=== PATIENT | female | born 1945 | race Caucasian/White ===

== ENCOUNTER 2019-09-02 11:03 | Outpatient (CLI) | payer MEDICARE, SELFPAY ==
--- NOTE | ~2019-09-02 | CT_ITS ---
EXAMINATION: CT shoulder RT wo con DATE: 09/02/2019 11:28 INDICATION: Right rotator cuff arthropathy. TECHNIQUE: High resolution computed tomography (CT) of the right shoulder was performed without intra venous contrast. Additional sagittal and coronal reconstructions were performed. Automated exposure c ontrol and iterative reconstruction technique were employed. The dose-length product was 493.22 mGy-c m. COMPARISON: Right shoulder radiographs dated 05/22/2019 and MRI dated 03/11/2019 FINDINGS: Bone alignment is normal. No fracture. The acromion undersurface is curved in morphology (type II). M ild acromioclavicular osteoarthritis. Right glenohumeral osteoarthritis with moderate to severe joint space narrowing and mild cystic changes along the posterior and superior glenoid. There is approxima tely 10 degrees retroversion of the glenoid. Dorsal osteophyte along the inferior humeral head. There are hypertrophic changes along with suture anchor tracks along the greater and lesser tuberosities c onsistent with prior rotator cuff repair. No significant rotator cuff muscle atrophy. Mild dependent bibasilar atelectasis in the visualized right lung. No pathologically enlarged lymphadenopathy at the right axillary visualized chest. Moderate thoracic and severe lower cervical spondylosis. Hemangioma at T3. IMPRESSION: 1. Moderate to severe glenohumeral osteoarthritis with 10 degree glenoid retroversion. 2. Postoperative change of prior rotator cuff repair with suture anchors at the lesser and greater tu berosities. No significant rotator cuff muscle atrophy. Reviewed, dictated and finalized at location A. IMPRESSION: 1. Moderate to severe glenohumeral osteoarthritis with 10 degree glenoid retrov ersion. 2. Postoperative change of prior rotator cuff repair with suture anchors at the lesser and greater tuberosities. No significant rotator cuff muscle atrophy.
== END 2019-09-02 11:04 | disposition home or self-care (01) ==
LOC: ANHIMG 11:05
PROVIDERS: PCP Internal Medicine; Visit Provider Orthopaedic Surgery
DX: M19.011 Primary osteoarthritis, right shoulder (principal)
CPT/HCPCS: 36415; 73200; 80048; 85025; 87081; 93005

== ENCOUNTER 2019-09-02 11:40 | Outpatient (CLI) | payer MEDICARE, SELFPAY ==
--- NOTE | 2019-09-02 12:24 | ECG_ITS ---
Measurements Intervals [place] Rate: 73 P: 60 TN: 184 QRS: 22 QRSD: 83 T: 35 QT: 363 QTc: 402 Interpretive Statements SINUS RHYTHM NORMAL ECG Electronically Signed On 09-02-2019 12:59:10 CDT by Kali Guaman D.O.
[2019-09-02 12:44] LABS: Basophils Absolute Auto 0.1 K/mm3 (0.0-0.1); Basophils Percent Auto 0.7 % (0.2-1.2); Eosinophils Absolute Auto 0.2 K/mm3 (0-0.3); Hematocrit 42.1 % (37.0-47.0); Hemoglobin 13.8 g/dL (12.0-15.0); Immature Granulocyte Absolute 0.01 K/mm3 (0.00-0.031); Immature Granulocyte Percent A 0.1 % (0-0.5); Lymphocytes Absolute Auto 3.19 K/mm3 (0.9-3.2); Lymphocytes Percent Auto 39.2 % (18.3-44.2); Mean Corpuscular HGB Conc 32.8 g/dl (32-36); Mean Corpuscular Hemoglobin 28.6 pg (26-34); Mean Corpuscular Volume 87.2 fl (80-100); Mean Platelet Volume 10.8 fl (7.4-10.4); Monocytes Absolute Auto 0.6 K/mm3 (0.1-0.6); Monocytes Percent Auto 7.9 % (2.6-8.5); Neutrophils Absolute Auto 4.1 K/mm3 (1.3-6.7); Neutrophils Percent Auto 50.1 % (45.5-73.1); Platelet Count Result 274 k/mm3 (150-375); Red Blood Count 4.83 M/mm3 (4.2-5.4); Red Cell Distribution Width 13.2 % (11.5-14.5); White Blood Count 8.1 K/mm3 (4.5-10.0)
[2019-09-02 12:57] LABS: Blood Urea Nitrogen 11 mg/dL (7-17); Calcium 9.3 mg/dL (8.4-10.2); Carbon Dioxide 30 mmol/L (22-30); Chloride 103 mmol/L (98-107); Estimated Glomerular Filt Rate > 60; Glucose 101 mg/dL (65-105); Potassium 4.2 mmol/L (3.4-5.0); Sodium 139 mmol/L (137-145)
== END 2019-09-02 11:41 | disposition home or self-care (01) ==
LOC: ANHSURGERY 11:42
PROVIDERS: Anesthesiology; PCP Internal Medicine; Visit Provider Orthopaedic Surgery
DX: M25.511 Pain in right shoulder (principal); E11.9 Type 2 diabetes mellitus without complications
CPT/HCPCS: 36415; 80048; 85025; 87081; 93005

== ENCOUNTER 2019-09-27 00:58 | Outpatient (CLI) | payer MEDICARE, SELFPAY ==
[2019-09-27 18:11] LABS: SARS-CoV-2 RNA PCR Negative
== END 2019-09-27 00:59 | disposition home or self-care (01) ==
LOC: ANHCOVIDDT 00:58
PROVIDERS: PCP Internal Medicine; Visit Provider Orthopaedic Surgery
DX: Z01.812 Encounter for preprocedural laboratory examination (principal); Z11.59 Encounter for screening for other viral diseases
CPT/HCPCS: 87635; C9803; U0003

== ENCOUNTER 2019-09-30 11:13 | Inpatient (IN) | payer MEDICARE, SELFPAY ==
[2019-09-02 12:04] VITALS: BP 142/76; PULSE 80; RESP 20; TEMP 37.2; O2SAT 96
[2019-09-02 12:24] VITALS: BMI 28.5
[2019-09-02 12:32] VITALS: BMI 28.5
--- NOTE | 2019-09-29 10:14 | WPDANESEPP ---
Anes - Eval Pre Procedure Procedure: Operation Date: 09/30/19 07:30 Proposed Procedures p Right Reverse Total Shoulder Arthroplasty - Jim Fink MD Date/Time: 09/29/19 10:14 Pre Op Diagnosis: Right Rotator Cuff Arthropathy Patient Data Age: 74 Gender: F Height: 1.55 m Weight: 68.4 kg Last Vital Signs Temp 37.2 C 09/02/19 12:04 Pulse 80 09/02/19 12:04 Resp 20 09/02/19 12:04 BP 142/76 H 09/02/19 12:04 Pulse Ox 96 09/02/19 12:04 Allergies Allergy/AdvReac Type Severity Reaction Status Date / Time iohexol Allergy Severe Anaphylaxis Verified 09/02/19 11:55 [From contrast - CT, X-RAY] shellfish derived Allergy Severe Anaphylaxis Verified 09/02/19 11:55 [id number] Reductase Allergy Severe Diarrhea Verified 09/02/19 11:55 Inhibitor iodine Allergy Mild Blister Verified 09/02/19 11:55 Home Medications Medication Instructions Recorded Confirmed Type sitagliptin 100 mg tablet 100 mg PO DAILY #90 tablet 01/20/19 09/02/19 Rx esomeprazole magnesium 40 mg 40 mg PO DAILY 02/28/19 09/02/19 History capsule,delayed release famotidine 40 mg tablet 40 mg PO DAILY tablet 02/28/19 09/02/19 History cetirizine 10 mg tablet 5 mg PO DAILY PRN 06/30/19 09/02/19 History ezetimibe 10 mg tablet 10 mg PO DAILY 06/30/19 09/02/19 History hydrocodone 5 mg-acetaminophen 325 1 tablet PO Q8H PRN #50 tablet 06/30/19 09/02/19 Rx mg tablet ondansetron 8 mg disintegrating 8 mg PO Q8H PRN #50 tablet 06/30/19 09/02/19 Rx tablet coenzyme Q10 30 mg capsule 30 mg PO DAILY 07/01/19 09/02/19 History alirocumab 150 mg/mL subcutaneous 150 mg SUBCUT Q14D #2 ml 08/13/19 09/02/19 Rx pen injector calcium carbonate-vitamin D3 1 tablet PO DAILY 09/02/19 09/02/19 History [Calcium 500 + D] Patient hx anesthesia problems: none Family hx anesthesia problems: none PMFSH Past Medical History Medical History (Updated 09/29/19 @ 10:16 by Shanthi Lemus CRNA) Arthritis of right shoulder region DM2 (diabetes mellitus, type 2) A1C=7 (02/26/19) GERD (gastroesophageal reflux disease) Hypercholesteremia Osteoporosis Right shoulder pain Rotator cuff arthropathy of right shoulder Surgical History Surgical History History of ankle surgery Right ORIF -2012 History of arthroscopy of right shoulder (~01/25/12) History of epicondylectomy Bilateral 2004 History of lumpectomy of both breasts 1985 History of partial hysterectomy History of tonsillectomy Hx of repair of rotator cuff Bilateral 2004 Social History Social History Smoking status: Never smoker Second hand tobacco smoke exposure: No Alcohol intake: never Additional living arrangements comments: Fam Paul (Spouse) Spiritual care concerns: No Exam Day of Procedure 09/29/19 10:14
[2019-09-30] VITALS (12 sets, daily range): BP systolic 122–180; BP diastolic 58–88; PULSE 73–100; RESP 14–18; TEMP 36.2–36.6; O2SAT 94–100
--- NOTE | ~2019-09-30 | XR_ITS ---
XR shoulder RT min 2V DATE: 09/30/2019 12:49 INDICATION: Postoperative examination TECHNIQUE: 2 views COMPARISON: None FINDINGS: There is postoperative change from reverse total glenohumeral joint replacement. No fracture or dislocation, periosteal reaction or bone destruction. IMPRESSION: Postoperative reverse total glenohumeral replacement Reviewed, dictated and finalized at location A.
[2019-09-30] MEDS: LACTATED RINGERS 1,000 ML 30 ML IV CONT ×2 (06:30→09:57)
[2019-09-30] MEDS: KETOROLAC 15 MG/ML VIAL (*BKC) IV PUSH (06:39)
[2019-09-30] MEDS: ACETAMINOPHEN 500 MG TABLET 1000 MG PO (06:39)
[2019-09-30] MEDS: TRANEXAMIC ACID 1,000MG/ISO100 1,000 MG/100 ML BAG 200 MG IVPB (06:39)
[2019-09-30 06:50] LABS: Glucose Point of Care 136 (65-105)
--- NOTE | 2019-09-30 07:00 | WPDANESEFPP ---
Anes - Eval Final PreProcedure Day of Procedure 09/30/19 07:00 Patient weight: overweight Heart: regular rate and rhythm Lungs: clear to auscultation Airway: Mallampati scale class II Neurological: alert and oriented Last oral intake: >/= 8 hours ASA classification: III Emergent: no Anesthetic plan: proceed Anesthesia type and monitoring: general ETT and standard monitoring Informed Consent: The patient's anesthetic plan and its attendant risks and benefits were discussed with the patient/family/POA. Questions were solicited and answers provided to the satisfaction of the patient/family/POA.
--- NOTE | 2019-09-30 07:18 | WPDHPUPDATE1 ---
History and Physical Update Update Date/Time: 09/30/19 07:18 History and Physical has been reviewed, including an updated exam of the patient. There are NO changes in the patient's condition. Risks, benefits, and alternatives have been discussed and questions answered. Patient agrees to proceed with procedure.
[2019-09-30] MEDS: ceFAZolin 2 GM/D5W 50 ML 2 GM/50 ML BAG IVPB (07:23)
--- NOTE | 2019-09-30 10:11 | P.OP_ITS ---
Procedure Note - Detailed Date of procedure: 09/30/19 Pre-op diagnosis: Right Rotator Cuff Arthropathy Post-op diagnosis: same Procedure performed: Reverse total shoulder arthroplasty. Biceps tenodesis. Implants: [employer]/ Bird, perform + reversed base plate. Perform reversed glenoid sphere, size 36 Flex shoulder system reverse tray low offset. 6 mm polyethylene reversed insert. Ascend flex standard humeral stem size 2B Anesthesia: GETA and regional Surgeon: Jim Fink MD Estimated blood loss (mL): 150 Drains: No Complications: None Condition: stable Disposition: PACU Findings: OPERATIVE DETAILS: The patient was given an interscalene block in the preoperative area. Preoperative antibiotics were given. The patient was transferred to the operating room and a general anesthetic was administered. The beach chair position was used at 45 degrees. All bony prominences were padded. The head was carefully stabilized on the [facility] head of digital advertising & integration. A sterile prep and drape was performed in the usual manner with ChloraPrep. A longitudinal incision was created at the anterior shoulder just lateral to the deltopectoral interval. Careful dissection was performed to expose the interval and protect the cephalic vein. The vein was retracted medially. The upper border of the pectoralis was released. Anterior circumflex vessel branches were suture ligated. The biceps was tenotomized and later tenodesed. A subscapularis tenotomy was performed. The inferior capsule was released, exposing the humeral head. Osteophytes were removed. Care was taken to stay on bone to protect the axillary nerve. The anatomic head cut was taken with the oscillating saw, 20 degree retroversion. Sounding and broaching was performed. The neck anteversion and inclination were carefully assessed. The cut protector was placed, and attention was turned to the glenoid. Retractors were placed. Releases were carried out for exposure. The subscapularis was mobilized, the inferior capsule and long head of triceps released, and the superior and middle glenohumeral ligaments released as well. Labral tissue was resected as needed. The sizing template was used to assess the baseplate position low on the glenoid. A guide pin was placed. Minimal reaming was used to accomplish a flat surface. Version was corrected according to preoperative templating, with more bone removed inferior and anterior. The boss, and central screw were drilled. The real component was screwed into position wtih the 35 mm screw. Supplemental locking screws were placed superiorly and inferiorly. The glenosphere was impacted into the taper, and secured with the locking screw. The humeral components were trialed. The real humeral stem and tray, and insert were impacted into position at 10:15 on the clock dial. The shoulder was copiously irrigated periodically with pulsatile lavage. The shoulder was reduced and stability confirmed. The biceps tenodesis was incorporated with the pectoralis tendon repair. The subsc apularis tendon was easily reduced, and thus repaired with #5 Ethibond. The deltopectoral space was reapproximated with number 2 Vicryl. The remaining tissue was closed with 0 Quill and 2-0 Quill running suture and steri-strips. A sterile dressing and shoulder immobilizer was placed. The patient was transferred to the recovery room. The subcutaneus tissues and skin were treated with peroxide and irrigated prior to closure.
[2019-09-30 10:44] LABS: Glucose Point of Care 216 (65-105)
--- NOTE | 2019-09-30 11:25 | ADMGEN ---
This patient, Brina Paul, was admitted to -. Patient/family oriented to hospital policies and general routines including ID bracelet, bed and alarms, visiting hours, pain management, procedures, bathroom and other care routines, personal items, smoking policy, room service/diet, and visiting hours. Valuables list has been completed. Information on how to activate the Rapid Response Team has been discussed. Patient/Family are encouraged to report perceived risks to care and to ask questions if they do not understand what they are told or what they should do.
[2019-09-30] MEDS: ONDANSETRON HCL ODT 4 MG TABLET 8 MG PO ×2 (12:12→22:17)
[2019-09-30] MEDS: SODIUM CHLORIDE 0.9% IV 1,000 ML 125 ML IV CONT (12:14)
[2019-09-30] MEDS: MEPERIDINE HCL INJ 50 MG/ML AMPUL IM (14:12)
--- NOTE | 2019-09-30 15:05 | PCPTNOTE ---
Attempted PT evaluation this date however pt was extremely groggy and unable to stay awake and requested that therapist come back tomorrow. Will attempt at a later date/time.
[2019-09-30] MEDS: FAMOTIDINE 20 MG TABLET 40 MG PO (18:08)
[2019-09-30] MEDS: DOCUSATE SODIUM 100 MG CAPSULE PO (22:06)
[2019-09-30] MEDS: ASPIRIN 325 MG ENTERIC TABLET PO (22:20)
[2019-09-30 23:03] LABS: Glucose Point of Care 160 (65-105)
[2019-10-01 00:58] VITALS: BP 141/64; PULSE 100; RESP 20; TEMP 36.6; O2SAT 92
[2019-10-01] MEDS: MEPERIDINE HCL INJ 50 MG/ML AMPUL IM (01:56)
[2019-10-01 04:58] VITALS: BP 135/60; PULSE 100; RESP 18; TEMP 36.6; O2SAT 96
[2019-10-01 07:49] LABS: Glucose Point of Care 183 (65-105)
[2019-10-01 08:13] LABS: Hematocrit 36.1 % (37.0-47.0); Hemoglobin 11.9 g/dL (12.0-15.0); Mean Corpuscular Hemoglobin 28.8 pg (26-34); Mean Corpuscular Volume 87.4 fl (80-100); Mean Platelet Volume 10.6 fl (7.4-10.4); Platelet Count Result 266 k/mm3 (150-375); Red Blood Count 4.13 M/mm3 (4.2-5.4); White Blood Count 14.4 K/mm3 (4.5-10.0)
--- NOTE | 2019-10-01 08:15 | WPDANESPN ---
Anes - Prog Note Post-Op Date/Time: 10/01/19 08:15 Cardiovascular status: normal Respiratory status: normal Airway patency: baseline Mental status: baseline Post-Op hydration status: normal Vital Signs: Last Vital Signs Temp 36.6 C 10/01/19 04:58 Pulse 100 10/01/19 04:58 Resp 18 10/01/19 04:58 BP 135/60 10/01/19 04:58 Pulse Ox 96 10/01/19 04:58 Pain Score (VAS): Patient resting in bed at time of assessment, appears comfortable at rest. Pt notes right shoulder pain during ambulation. Mild nausea with relief with PRN medications. No additional concerns at time of assessment. I/O: Intake & Output 09/30/19 10/01/19 10/01/19 23:59 07:59 15:59 Intake Total 1840 420 Output Total 200 Balance 1640 420 Laboratory Tests 10/01/19 07:57 09/30/19 09/30/19 10/01/19 10:41 22:31 07:46 WBC RBC Hgb Hct MCV MCH MCHC RDW Plt Count MPV Sodium Potassium Chloride Carbon Dioxide Anion Gap BUN Creatinine Estim Creat Clear Calc Estimated GFR Glucose POC Capillary Glucose 216 H 160 H 183 H Calcium 10/01/19 10/01/19 07:57 07:57 WBC 14.4 H RBC 4.13 L Hgb 11.9 L Hct 36.1 L MCV 87.4 MCH 28.8 MCHC 33.0 RDW 13.0 Plt Count 266 MPV 10.6 H Sodium Pending Potassium Pending Chloride Pending Carbon Dioxide Pending Anion Gap Pending BUN Pending Creatinine Pending Estim Creat Clear Calc Pending Estimated GFR Pending Glucose Pending POC Capillary Glucose Calcium Pending Post-procedural complaints: none Patient Feedback: Patient satisfied with anesthetic care.
[2019-10-01 08:19] LABS: Anion Gap 7 mmol/L (8-16); Blood Urea Nitrogen 19 mg/dL (7-17); Calcium 8.2 mg/dL (8.4-10.2); Carbon Dioxide 28 mmol/L (22-30); Chloride 97 mmol/L (98-107); Estimated CRCL calculation 73 ml/min; Estimated Glomerular Filt Rate > 60; Glucose 192 mg/dL (65-105); Sodium 132 mmol/L (137-145)
[2019-10-01] MEDS: FAMOTIDINE 20 MG TABLET 40 MG PO (08:55)
[2019-10-01] MEDS: ASPIRIN 325 MG ENTERIC TABLET PO ×2 (08:55→21:30)
[2019-10-01] MEDS: EZETIMIBE 10 MG TABLET PO (08:55)
[2019-10-01] MEDS: DOCUSATE SODIUM 100 MG CAPSULE PO ×2 (08:56→21:30)
[2019-10-01] MEDS: PANTOPRAZOLE 40 MG TABLET PO (08:56)
[2019-10-01 10:00] VITALS: BP 140/60; PULSE 96; RESP 18; TEMP 37.2; O2SAT 97
[2019-10-01 11:03] VITALS: O2SAT 93
[2019-10-01] MEDS: CALCIUM CARBONATE (TUMS) 500 MG (200 MG ELEMENTAL) PO (11:14)
[2019-10-01 11:59] LABS: Glucose Point of Care 175 (65-105)
--- NOTE | 2019-10-01 12:14 | PM.IMCN ---
Assessment and Plan Assessment and plan (1) Arthritis of right shoulder region: Code(s): M19.011 - Primary osteoarthritis, right shoulder Status: Acute Assessment and Plan: POD 1 elective reverse total shoulder arthroplasty and biceps tenodesis per Dr. Fink. Patient appears to be doing well postoperatively. Post op care, pain management, PT/OT, DVT ppx per primary service Patient is okay for discharge from medical standpoint F/u with PCP at scheduled appointment (2) Gastroesophageal reflux disease without esophagitis: Code(s): K21.9 - Gastro-esophageal reflux disease without esophagitis Status: Acute Assessment and Plan: Patient requested Tums this morning, which seemed to improve her symptoms. No further complaints. 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 We will continue to follow with you should she stay. Please call with any questions. Collaborating physician for this Hospitalist Consult H&P is Dr. Terese ANTONIO 10/01/2019 at roughly 12:00 pm HPI Data of Consult Consult date: 10/01/19 Requesting Physician: Jim Fink MD Primary Care Provider: Lopez Lawrence MD Consult Narrative Narrative: Brina Paul is a 74 year old female with history of right rotator cuff tear (s/p repair), right shoulder arthritis, DMII, Hypercholesteremia and GERD who presented to the hospital on 09/29 for elective reverse total shoulder arthroplasty and biceps tenodesis per Dr. Fink on 09/29; hospitalist service has been consulted for medical management of comorbid conditions. Patient states her pain has been ongoing for 18 years, having 2 arthroscopic repairs of her rotator cuff tears. She has had injections in the joint as well. Her pain has gradually worsened over the past several months. Diffuse, constant pain at rest, worsened with motion, affecting her ADLs. Patient elected to proceed with above surgery. Pain at its worse prior to surgery was 10/10; today it is 5/10 currently. Patient has intact motion of digits/hand of right arm and denies any numbness/tingling. She had some indigestion this morning but as improved with her home medications and Tums. No other complaints at the moment. Denies f/c/s, recent illness, myalgias/arthralgias, headaches, dizziness, lightheadedness, changes in v/h, cp/palpitations, sob/cough, current n/v/d/c, abd pain, changes in BMs, dysuria, hematuria, cloudy urine, calf pain/swelling. Review of Systems Review of Systems: All systems reviewed & are unremarkable except as noted in HPI and below PMFSH Past Medical History Medical History Arthritis of right shoulder region DM2 (diabetes mellitus, type 2) A1C=7 (02/26/19) GERD (gastroesophageal reflux disease) Hypercholesteremia Osteoporosis Right shoulder pain Rotator cuff arthropathy of right shoulder Surgical History Surgical History (Reviewed
--- NOTE | 2019-10-01 13:07 | PM.PNORT ---
Progress Note: A&P Assessment and Plan (1) Status post reverse total arthroplasty of right shoulder: Code(s): Z96.611 - Presence of right artificial shoulder joint Status: Acute Assessment and Plan: Uncomfortable. Pain controlled with IM medication. Neurologic status intact. Continue physical therapy. Plan for discharge tomorrow. Subjective Subjective Date/Time Seen: 10/01/19 13:07 Interval history: Pain is controlled with Demerol at this time. Satisfactory progress with physical therapy. Exam Narrative: Exam Narrative: Wound is healing without hematoma. Scant drainage at the central aspect of the wound. Laser Engineer strength intact. Light touch sensation intact. Axillary nerve fires. No significant ecchymosis or distal edema. Const: Orientation/consciousness: patient oriented x3 Neuro: General: patient oriented x3 Extrem: General: capillary refill normal and no calf tenderness bilaterally Objective Data Vital Signs Vital Signs: Vital Signs - 24 hr 09/30/19 13:10 09/30/19 16:10 09/30/19 22:00 Temperature 36.3 C L 36.3 C L 36.5 C Pulse Rate 81 88 100 Respiratory Rate 16 18 18 Blood Pressure 134/67 137/65 152/72 H Pulse Oximetry 94 99 95 10/01/19 00:58 10/01/19 04:58 10/01/19 10:00 Temperature 36.6 C 36.6 C 37.2 C Pulse Rate 100 100 96 Respiratory Rate 20 18 18 Blood Pressure 141/64 H 135/60 140/60 Pulse Oximetry 92 96 97 10/01/19 11:03 Temperature Pulse Rate Respiratory Rate Blood Pressure Pulse Oximetry 93 Intake/Output Intake/Output: Intake & Output 09/28/19 09/29/19 09/30/19 10/01/19 23:59 23:59 23:59 23:59 Intake Total 2340 660 Output Total 400 Balance 1940 660 Meds/Results Medications: Active Medications Generic Name Dose Route Start Last Admin Trade Name Freq PRN Reason Stop Dose Admin Aspirin 325 mg 09/30/19 21:00 10/01/19 08:55 Aspirin Ec PO 325 mg Q12HR JOHN Administration Calcium Carbonate 200 mg 10/01/19 11:06 10/01/19 11:14 Tums PO 200 mg Q6H PRN Administration Indigestion Dextrose 12.5 gm 09/30/19 20:08 Dextrose 50% Syringe IV PUSH PRN PRN Hypoglycemia Protocol Diazepam 5 mg 09/30/19 11:13 Valium Po PO Q8H PRN Muscle Spasm Docusate Sodium 100 mg 09/30/19 21:00 10/01/19 08:56 Colace Capsule PO 100 mg Q12HR JOHN Administration Ezetimibe 10 mg 10/01/19 09:00 10/01/19 08:55 Zetia PO 10 mg DAILY JOHN Administration Famotidine 40 mg 09/30/19 17:41 10/01/19 08:55 Pepcid PO 40 mg DAILY JOHN Administration Glucagon 1 mg 09/30/19 20:08 Glucagon For Inj IM PRN PRN Hypoglycemia Protocol Glucose 15 gm 09/30/19 20:08 Glutose 15 PO PRN PRN Hypoglycemia Protocol Dextrose 1,000 mls @ 100 mls/hr 09/30/19 20:08 Dextrose 5% 1,000 Ml IVPB PRN PRN Hypoglycemia Protocol Insulin Aspart 2 - 5 units 10/01/19 08:00 10/01/19 12:03 Novolog SUB-Q Not Given TIDWM [facility] Protocol Loratadine 5 mg 09/30/19 11:13 Claritin PO DAILY PRN Congestion Magnesium Hydroxide 30 ml 09/30/19 11:13 Milk Of Magnesia PO BID PRN Constipation Meperidine HCl 50 mg 09/30/19 13:35 10/01/19 01:56 Demerol IM 50 mg Q3H PRN Administration Breakthrough Pain Non-Formulary Medication 150 mg 09/30/19 11:13 Alirocumab [Praluent Pen] SUB-Q 10/30/19 11:14 Q14D [facility] Ondansetron HCl 8 mg 09/30/19 11:13 09/30/19 22:17 Zofran Odt PO 8 mg Q8H PRN Administration nausea and vomiting Oxycodone HCl 5 mg 09/30/19 11:13 09/30/19 22:19 Roxicodone Ir Tablet PO 5 mg Q4H PRN Administration Pain Rated 4-6 Oxycodone HCl 10 mg 09/30/19 11:13 09/30/19 12:16 Roxicodone Ir Tablet PO 10 mg Q4H PRN Administration Pain Rated 7-10 Pantoprazole Sodium 40 mg 10/01/19 09:00 10/01/19 08:56 Protonix PO 10/31/19 09:01 40
[2019-10-01 14:00] VITALS: BP 159/58; PULSE 106; RESP 17; TEMP 36.5; O2SAT 95
[2019-10-01 16:39] LABS: Glucose Point of Care 140 (65-105)
[2019-10-01] MEDS: ONDANSETRON HCL ODT 4 MG TABLET 8 MG PO (21:27)
[2019-10-01 22:00] VITALS: BP 150/55; PULSE 100; RESP 20; TEMP 36.9; O2SAT 96
[2019-10-01 23:19] LABS: Glucose Point of Care 141 (65-105)
[2019-10-02 04:50] VITALS: BP 128/56; PULSE 99; RESP 20; TEMP 36.4; O2SAT 92
[2019-10-02 06:02] LABS: Hematocrit 32.6 % (37.0-47.0); Hemoglobin 10.7 g/dL (12.0-15.0); Mean Corpuscular HGB Conc 32.8 g/dl (32-36); Mean Corpuscular Hemoglobin 28.7 pg (26-34); Mean Corpuscular Volume 87.4 fl (80-100); Mean Platelet Volume 10.5 fl (7.4-10.4); Platelet Count Result 221 k/mm3 (150-375); Red Blood Count 3.73 M/mm3 (4.2-5.4); White Blood Count 11.2 K/mm3 (4.5-10.0)
[2019-10-02 06:17] LABS: Anion Gap 4 mmol/L (8-16); Blood Urea Nitrogen 10 mg/dL (7-17); Calcium 8.2 mg/dL (8.4-10.2); Carbon Dioxide 30 mmol/L (22-30); Chloride 99 mmol/L (98-107); Estimated CRCL calculation 89 ml/min; Estimated Glomerular Filt Rate > 60; Glucose 157 mg/dL (65-105); Magnesium 1.9 mg/dL (1.6-2.3); Potassium 3.8 mmol/L (3.4-5.0); Sodium 133 mmol/L (137-145)
[2019-10-02 07:47] LABS: Glucose Point of Care 151 (65-105)
[2019-10-02] MEDS: DOCUSATE SODIUM 100 MG CAPSULE PO (07:52)
[2019-10-02] MEDS: FAMOTIDINE 20 MG TABLET 40 MG PO (07:52)
[2019-10-02] MEDS: EZETIMIBE 10 MG TABLET PO (07:53)
[2019-10-02] MEDS: ASPIRIN 325 MG ENTERIC TABLET PO (07:53)
[2019-10-02] MEDS: PANTOPRAZOLE 40 MG TABLET PO (07:53)
[2019-10-02 08:17] VITALS: O2SAT 92
[2019-10-02 11:27] LABS: Glucose Point of Care 132 (65-105)
--- NOTE | 2019-10-02 11:55 | PM.DS ---
DS: Admitting Diagnosis Admitting Diagnosis Admitting Diagnosis: Right Rotator Cuff Arthropathy DS: Discharge Diagnosis Discharge Diagnosis (1) Status post reverse total arthroplasty of right shoulder: Code(s): Z96.611 - Presence of right artificial shoulder joint Status: Acute DS: Summary Hospital Course Reason for hospitalization: Total shoulder arthroplasty. Hospital Course: Tolerated surgery well. Initial parenteral pain medication required. No interscalene block used. Progressed appropriately with therapy. Status at Discharge Functional status at discharge: independent ambulation Time Spent with Patient Time attestation: Total time spent providing and/or coordinating discharge services: Exam Const: General: no acute distress Resp: Effort & Inspection: normal respiratory effort Skin: Other: Wound healing well, scant drainage stopped. Mepilex dressing changed. No hematoma. Sling applied appropriately. Deltoid muscle fires. Axillary nerve sensation intact. Good jointer submarine cable strength. No edema. radial pulse palpable. Neuro: Motor exam (neuro): 5/5 motor strength present throughout Sensory Exam: normal sensation Psych: Mental Status: mental status grossly normal Speech and movement: Normal speech and movement present DS: Data Data Completed and Pending Labs on day of discharge: Labs from last 24 hours 10/02/19 10/02/19 10/02/19 11:25 07:41 05:43 WBC RBC Hgb Hct MCV MCH MCHC RDW Plt Count MPV Sodium 133 L Potassium 3.8 Chloride 99 Carbon Dioxide 30 Anion Gap 4 L BUN 10 D Creatinine 0.40 L Estim Creat Clear Calc 89 Estimated GFR > 60 Glucose 157 H POC Capillary Glucose 132 H 151 H Calcium 8.2 L Magnesium 1.9 10/02/19 10/01/19 10/01/19 05:43 21:35 16:23 WBC 11.2 H RBC 3.73 L Hgb 10.7 L Hct 32.6 L MCV 87.4 MCH 28.7 MCHC 32.8 RDW 13.0 Plt Count 221 MPV 10.5 H Sodium Potassium Chloride Carbon Dioxide Anion Gap BUN Creatinine Estim Creat Clear Calc Estimated GFR Glucose POC Capillary Glucose 141 H 140 H Calcium Magnesium 10/01/19 11:47 WBC RBC Hgb Hct MCV MCH MCHC RDW Plt Count MPV Sodium Potassium Chloride Carbon Dioxide Anion Gap BUN Creatinine Estim Creat Clear Calc Estimated GFR Glucose POC Capillary Glucose 175 H Calcium Magnesium Discharge Plan Discharge Attending physician on discharge: Jim Fink Consulting providers: Sebastian Ball Discharging Clinician: Jim Fink Patient Disposition: Home, Self-Care Activity: may shower Diet: regular Wound Care Instructions: follow printed instructions Discharge Instructions: See instruction sheet. Discharge instructions per Hospitalist Sebastian Ball PA-C: Follow up with Dr. Lawrence and Dr. Fink per their instructions Resume home medications as prescribed Continue to monitor your glucose levels at home Patient Instructions: Antibiotic Form, Rotator Cuff Injury (GEN), Joint Replacement Surgery (DC), Shoulder Arthroplasty (DC) Stand Alone Forms: General Discharge Information Follow-up/Referrals: Jim Fink MD [Physician] - Discharge Medications: New oxycodone-acetaminophen 5-325 mg tablet 1 - 2 tablet PO Q4-6H MDD 8 tablets PRN (Reason: pain) Qty: 40 RF: 0 Continued famotidine 40 mg tablet 40 mg PO DAILY RF: 0 esomeprazole magnesium 40 mg capsule,delayed release(DR/EC) 40 mg PO DAILY RF: 0 ezetimibe [Zetia] 10 mg tablet 10 mg PO DAILY RF: 0 cetirizine [Zyrtec] 10 mg tablet 5 mg PO DAILY PRN (Reason: Congestion) RF: 0 ondansetron 8 mg tablet,disintegrating 8 mg PO Q8H PRN (Reason: nausea and vomiting) Qty: 50 RF: 0 hydrocodone-acetaminophen 5-325 mg tablet 1 tablet PO Q8H PRN (Reason: pain) Qty: 5
--- NOTE | 2019-10-02 12:16 | PM.IMPN ---
Progress Note: A&P Assessment and Plan (1) Arthritis of right shoulder region: Code(s): M19.011 - Primary osteoarthritis, right shoulder Status: Acute Assessment and Plan: POD 2 elective reverse total shoulder arthroplasty and biceps tenodesis per Dr. Fink. Patient appears to be doing well postoperatively again today Post op care, pain management, PT/OT, DVT ppx per primary service Patient is okay for discharge from medical standpoint F/u with PCP and Ortho at scheduled appointment (2) Gastroesophageal reflux disease without esophagitis: Code(s): K21.9 - Gastro-esophageal reflux disease without esophagitis Status: Acute Assessment and Plan: No complaints today Continue home medications at discharge Continue with Tums PRN (3) Mixed hyperlipidemia: Code(s): E78.2 - Mixed hyperlipidemia Status: Acute Assessment and Plan: Continue with home Zetia Hold alirocumab; resume at discharge (injection every 2 weeks) (4) DM2 (diabetes mellitus, type 2): Qualifiers: Diabetes mellitus retirement insulin use: without retirement use Diabetes mellitus complication status: without complication Qualified Code(s): E11.9 - Type 2 diabetes mellitus without complications Code(s): E11.9 - Type 2 diabetes mellitus without complications Status: Acute Assessment and Plan: BGL reasonable during stay. 100s today Continue Januvia Accuchecks ACHS, hypoglycemia protocol, correctional insulin, diabetic diet during stay Additional Plan Thank you for allowing the Hospitalist team to care for this patient during their stay. We will continue to follow with you should she stay. Please call with any questions. Subjective Date/time seen: 10/02/19 12:16 This is a Hospitalist Consult Progress Note Interval history: Patient is a 74 year old female with history of right rotator cuff tear (s/p repair), right shoulder arthritis, DMII, Hypercholesteremia and GERD who is here for elective reverse total shoulder arthroplasty and biceps tenodesis per Dr. Fink POD2; hospitalist service has been consulted for medical management of comorbid conditions. Patient states she is doing well today. Pain is much better today. Tolerating PO, no BMs, but passing flatus. Therapy is going well, just tired from her session today. No other complaints. Denies f/c/s, cp/palpitations, sob/cough, n/v/d/c, abd pain,, dysuria, hematuria, cloudy urine, calf pain/swelling. Review of Systems Review of Systems: All systems reviewed & are unremarkable except as noted in HPI and below Exam Narrative: Exam Narrative: Patient lying in semi-adame's position at time of visit. in room visiting Const: General: cooperative, healthy appearing, comfortable, no acute distress, well developed and alert Nutritional Appearance: well nourished Orientation/consciousness: patient oriented x3 HENMT: Head: normocephalic and atraumatic General nose exam: Normal nares present Face and sinus: face symmetric Mouth: Yes moist mucous membranes Eyes: General: appearance normal, both eyes and all related structures EOM: EOMs intact bilaterally Neck: Neck: trachea midline and supple Resp: Effort & Inspection: normal respiratory effort Auscultation: clear to auscultation bilaterally Cardio: Rate: regular rate Rhythm: regular rhythm Heart sounds: Murmur heart sound present systolic GI: Inspection: non-distended GI Palp: No abdominal tenderness and Yes Soft to palpation Auscultation: normal bowel sounds Skin: General skin exam: normal color and no rashes or lesions noted Neuro: General: patient oriented x3, moves all extremities and no focal motor deficits Speech: normal speech Extrem: Right lower extremity: no edema Left lower extremity: no edema O
== END 2019-10-02 12:48 | disposition home or self-care (01) | DRG 483 ==
LOC: ANH2MED 12:01
PROVIDERS: Physician Assistant; Admitting Provider Orthopaedic Surgery; PCP Internal Medicine; Visit Provider Orthopaedic Surgery
PROC: 0RRJ00Z Replacement of Right Shoulder Joint with Reverse Ball and Socket Synthetic Substitute, Open Approach (ICD-10-PCS; CPT 23472; principal; 2019-09-30 07:30)
DX: M19.011 Primary osteoarthritis, right shoulder (principal); E11.9 Type 2 diabetes mellitus without complications; K21.9 Gastro-esophageal reflux disease without esophagitis; M81.0 Age-related osteoporosis without current pathological fracture; E78.2 Mixed hyperlipidemia; Z79.899 Other long term (current) drug therapy
CPT/HCPCS: 36415; 73030; 80048; 83735; 85027; 86850; 86900; 86901; 97110; 97116; 97161; 97165; 97535; A4565; A9270; C1776; J0171; J0690; J1100; J1170; J1885; J1940; J2175; J2250; J2270; J2405; J2704; J2795; J3010; J7030; J7120

== ENCOUNTER 2019-10-31 07:06 | Outpatient (NON) | payer MEDICARE, SELFPAY ==
[2019-11-01 18:02] LABS: SARS-CoV-2 RNA PCR Negative
== END 2019-10-31 07:07 ==
PROVIDERS: PCP Internal Medicine; Visit Provider Internal Medicine
DX: Z20.828 Contact with and (suspected) exposure to other viral communicable diseases (principal)
CPT/HCPCS: 87635; C9803; U0003

== ENCOUNTER → 2020-02-06 14:43 | Outpatient (CLI) | payer MEDICARE, SELFPAY ==
--- NOTE | ~2020-02-06 | MM_ITS ---
EXAMINATION: MM screening [facility] BI w karol HISTORY: Screening mammogram TECHNIQUE: Craniocaudal and mediolateral oblique 3-D tomosynthesis images were obtained and synthetic 2-D images were generated. CAD analysis was submitted and interpreted. COMPARISON: 10/23/2018, 03/18/2015, 07/22/2013 BREAST PARENCHYMAL COMPOSITION: There are scattered areas of fibroglandular density. FINDINGS: There is no evidence of suspicious mass, calcification, or architectural distortion to sugg est malignancy in either breast. There has been no suspicious interval change. IMPRESSION: 1. No mammographic evidence of malignancy. 2. Recommend routine screening mammography in one year. BI-RADS Category 1: Negative Reviewed, dictated and finalized at location A. EL BANDER
== END ==
PROVIDERS: PCP Internal Medicine; Visit Provider Internal Medicine
DX: Z12.31 Encounter for screening mammogram for malignant neoplasm of breast (principal)
CPT/HCPCS: 77063; 77067

== ENCOUNTER 2020-03-20 01:34 | Outpatient (CLI) | payer MEDICARE, SELFPAY ==
[2020-03-20 18:47] LABS: SARS-CoV-2 RNA PCR Negative
== END 2020-03-20 01:35 | disposition home or self-care (01) ==
LOC: ANHCOVIDDT 01:35
PROVIDERS: Family Provider Internal Medicine; PCP Internal Medicine; Visit Provider Internal Medicine Gastroenterology
DX: Z01.812 Encounter for preprocedural laboratory examination (principal); Z20.822 Contact with and (suspected) exposure to COVID-19
CPT/HCPCS: C9803; U0003; U0005

== ENCOUNTER 2020-03-23 02:07 | Day surgery (SDC) | payer MEDICARE, SELFPAY ==
[2020-03-18 15:44] VITALS: BMI 26.2
[2020-03-23 08:41] VITALS: BP 145/65; PULSE 77; RESP 18; TEMP 36.3; O2SAT 100; BMI 25.2
[2020-03-23 09:00] LABS: Glucose Point of Care 133 (65-105)
[2020-03-23] MEDS: LACTATED RINGERS 1,000 ML 150 ML IV CONT (09:04)
--- NOTE | 2020-03-23 09:28 | WPDGICN ---
Assessment and Plan Assessment and plan (1) Dysphagia: Qualifiers: Dysphagia type: oropharyngeal phase Qualified Code(s): R13.12 - Dysphagia, oropharyngeal phase Code(s): R13.10 - Dysphagia, unspecified Status: Acute Assessment and Plan: Because of patient's ongoing difficulty swallowing and possible history of esophageal stricture an EGD will be performed. Suspect this may be related to her acid reflux. Further recommendations will be given after endoscopy. (2) Hx of colonic polyps: Code(s): Z86.010 - Personal history of colonic polyps Status: Acute Assessment and Plan: Patient has a personal history of colon polyps. Surveillance colonoscopy recommended now on at least 5 year intervals in the future. (3) Gastric polyps: Code(s): K31.7 - Polyp of stomach and duodenum Status: Acute (4) Gastroesophageal reflux disease without esophagitis: Code(s): K21.9 - Gastro-esophageal reflux disease without esophagitis Status: Acute Assessment and Plan: Patient has ongoing heartburn despite Nexium 40 mg in the morning supplemented with Pepcid 40 mg at bedtime. Plan to evaluate with EGD. Dose of medications may need to be adjusted. GI Consult Note Consult date/time: 03/23/20 09:28 HPI: Brina Paul is a 74 year old female Seen in evaluation at the request of Dr. Lawrence. patient reports difficulty swallowing. She states food will hang up in her throat. She apparently had a modified barium swallow which she failed and has undergone speech therapy. Because of ongoing difficulty she presents today for EGD. She reports having prior EGD by Dr. Ny that showed a stricture that was dilated with a balloon. Patient complains of persistent heartburn. She takes Nexium 40 mg in the morning supplemented with Pepcid 40 mg at night but heartburn persists. Patient also has a distant history of colon polyps approximately 7 years ago. She presents today for surveillance colonoscopy. She states that her current weight appetite bowel movements are normal. Her last colonoscopy 5 years ago was unremarkable. [facility] Past Medical History Medical History (Updated 03/04/20 @ 08:[address] [facility]) Arthritis of right shoulder region BMI 27.0-27.9,adult DM2 (diabetes mellitus, type 2) A1C=7 (02/26/19) Dysphagia Encounter for Medicare annual wellness exam Gastric polyps GERD (gastroesophageal reflux disease) Hx of colonic polyps Hypercholesteremia Osteoporosis Right shoulder pain Rotator cuff arthropathy of right shoulder Surgical History Surgical History History of ankle surgery Right ORIF -2012 History of arthroscopy of right shoulder (~01/25/12) History of epicondylectomy Bilateral 2005 History of lumpectomy of both breasts 1985 History of partial hysterectomy History of tonsillectomy Hx of repair of rotator cuff Bilateral 2005 Status post reverse total arthroplasty of right shoulder Family History Family History Father Family history of osteoarthritis Sibling Family history of diabetes mellitus in first degree relative Diabetes mellitus Cancer Mother Acute myocardial infarction Hypertension Heart disease Social History Social History Social History: Patient lives at home with Fam, and son. She wishes Fam to be her surrogate MDM. She is listed as a FC. PCP is Dr. Lawrence whom she follows up with regularly Smoking status: Never smoker Second hand tobacco smoke exposure: No Alcohol intake: never Substance use: never Substance use type: does not use Living arrangements: with family Additional living arrangements comments: - Fam Spiritual care concerns: No Meds Home Medications and Allergies Home Medicatio
--- NOTE | 2020-03-23 09:57 | WPDANESEPPF ---
Anes - Initial Pre Proc Eval Procedure: Operation Date: 03/23/20 09:30 Proposed Procedures p Esophagogastroduodenoscopy & Screening Colonoscopy - Trey Lebron MD Date/Time: 03/23/20 09:57 Surgeon: Trey Lebron MD Pre Op Diagnosis: Dysphagia, Polyps stomach, duodenum,Pers Hx Angwin P Patient Data Age: 74 Gender: F Height: 5 ft 2 in Weight: 62.6 kg Last Vital Signs Temp 97.3 F L 03/23/20 08:41 Pulse 77 03/23/20 08:41 Resp 18 03/23/20 08:41 BP 145/65 H 03/23/20 08:41 Pulse Ox 100 03/23/20 08:41 Allergies Allergy/AdvReac Type Severity Reaction Status Date / Time iohexol Allergy Severe Anaphylaxis Verified 03/23/20 08:38 [From contrast - CT, X-RAY] shellfish derived Allergy Severe Anaphylaxis Verified 03/23/20 08:38 Ovtlvkz-Bkc-Ika Reductase Allergy Severe Diarrhea Verified 03/23/20 08:38 Inhibitor iodine Allergy Mild Blister Verified 03/23/20 08:38 acetaminophen [From Vicodin] AdvReac Dizziness Verified 03/23/20 08:40 hydrocodone [From Vicodin] AdvReac Dizziness Verified 03/23/20 08:40 Home Medications Medication Instructions Recorded Confirmed Type famotidine 40 mg tablet 40 mg PO DAILY tablet 02/28/19 03/18/20 History coenzyme Q10 30 mg capsule 30 mg PO DAILY 07/01/19 03/18/20 History calcium carbonate-vitamin D3 1 tablet PO DAILY 09/02/19 03/18/20 History [Calcium 500 + D] ezetimibe 10 mg tablet 10 mg PO DAILY #90 tablet 10/15/19 03/18/20 Rx esomeprazole magnesium 40 mg 40 mg PO DAILY #90 cap 12/16/19 03/18/20 Rx capsule,delayed release sitagliptin 100 mg tablet See Rx Instructions .ROUTE 03/08/20 03/18/20 Rx .COMPLEX #90 tablet alirocumab 75 mg/mL subcutaneous 75 mg SUBCUT Q14D #2 ml 03/11/20 03/18/20 Rx pen injector vitamin B complex [B 1 tablet PO DAILY 03/18/20 03/18/20 History Complex-Vitamin B12] Laboratory Tests 03/23/20 08:56 POC Capillary Glucose 133 mg/dl H mg/dl (65-105) Patient hx anesthesia problems: none Family hx anesthesia problems: none [facility] Past Medical History Medical History (Updated 03/04/20 @ 08:39 by Judy Hager [facility]) Arthritis of right shoulder region BMI 27.0-27.9,adult DM2 (diabetes mellitus, type 2) A1C=7 (02/26/19) Dysphagia Encounter for Medicare annual wellness exam Gastric polyps GERD (gastroesophageal reflux disease) Hx of colonic polyps Hypercholesteremia Osteoporosis Right shoulder pain Rotator cuff arthropathy of right shoulder Surgical History Surgical History History of ankle surgery Right ORIF -2012 History of arthroscopy of right shoulder (~01/25/12) History of epicondylectomy Bilateral 2004 History of lumpectomy of both breasts 1985 History of partial hysterectomy History of tonsillectomy Hx of repair of rotator cuff Bilateral 2004 Status post reverse total arthroplasty of right shoulder Family History Family History Father Family history of osteoarthritis Sibling Family history of diabetes mellitus in first degree relative Diabetes mellitus Cancer Mother Acute myocardial infarction Hypertension Heart disease Social History Social History Social History: Patient lives at home with Fam, and son. She wishes Fam to be her surrogate MDM. She is listed as a FC. PCP is Dr. Lawrence whom she follows up with regularly Smoking status: Never smoker Second hand tobacco smoke exposure: No Alcohol intake: never Substance use: never Substance use type: does not use Living arrangements: with family Additional living arrangements comments: - Fam Spiritual care concerns: No Anes - Eval Final PreProcedure Day of Procedure 03/23/20 09:57 Patient weight: overweight Heart: regular rate and rhythm Lungs: clear to auscultation Airway: Mallampati scale
[2020-03-23 10:51] VITALS: BP 131/64; PULSE 97; RESP 23; O2SAT 99
[2020-03-23 11:01] VITALS: BP 130/73; PULSE 87; RESP 16; O2SAT 98
[2020-03-23 11:10] VITALS: BP 124/63; PULSE 77; RESP 21; O2SAT 100
== END 2020-03-23 11:28 | disposition home or self-care (01) ==
PROVIDERS: Family Provider Internal Medicine; PCP Internal Medicine; Visit Provider Internal Medicine Gastroenterology
PROC: 0DJ08ZZ Inspection of Upper Intestinal Tract, Via Natural or Artificial Opening Endoscopic (ICD-10-PCS; CPT 43235; principal; 2020-03-23 09:30)
DX: Z12.11 Encounter for screening for malignant neoplasm of colon (principal); K64.8 Other hemorrhoids; Z86.010 Personal history of colon polyps; R13.10 Dysphagia, unspecified; K31.7 Polyp of stomach and duodenum; K21.9 Gastro-esophageal reflux disease without esophagitis; E11.9 Type 2 diabetes mellitus without complications; E78.00 Pure hypercholesterolemia, unspecified; M81.0 Age-related osteoporosis without current pathological fracture; Z79.84 Long term (current) use of oral hypoglycemic drugs
CPT/HCPCS: 43251; 43450; G0105; 82948; 88305; C9803; J2704; J7120; U0003; U0005

== ENCOUNTER 2020-05-15 16:00 | Emergency (ER) | payer MEDICARE, SELFPAY ==
--- NOTE | ~2020-05-15 | XR_ITS ---
EXAMINATION: XR foot LT min 3V EXAM DATE: 05/15/2020 16:39 INDICATION: Pain lat and medial Lt foot; twisted foot 5 days ago. Initial encounter. TECHNIQUE: Left foot dorsoplantar, lateral and oblique projections obtained and reviewed. Comparison is made to prior examination from 09/01/2015. FINDINGS: Left metatarsal bones unremarkable. There is mild hallux valgus and bunion. There is mil d 1st metatarsophalangeal joint primary osteoarthritis. There are no acute fractures or dislocations identified. There is no subcutaneous gas. The soft tissue is unremarkable. There are no radiopaqu e foreign bodies. IMPRESSION: 1. Left foot exam without acute osseous findings. 2. Chronic 1st metatarsophalangeal findings. Reviewed, dictated and finalized at location A.
[2020-05-15 16:15] VITALS: BP 153/64; PULSE 88; RESP 20; TEMP 37.4; O2SAT 97
--- NOTE | 2020-05-15 16:28 | ED.LOWEXIN ---
HPI - Extremity Injury (Lower) General Chief Complaint: Extremity Injury, Lower Stated Complaint: INJURED L FOOT Time Seen by Provider: 05/15/20 16:29 Source: patient Mode of arrival: ambulatory Limitations: no limitations History of Present Illness HPI Narrative: Brina Paul is a 74 yo female , with PMH of HTN, GERD, dysphagia, osteoporosis , diabetes, hypercholesterol, who had a sawhorse drop of her foot couple weeks ago. She was going on a stair and twisted her foot and now she is having pain in the foot is limping on Sunday. Here to evaluate whether she has a break in L foot as not improving. Related Data Home Medications Medication Instructions Recorded Confirmed calcium carbonate-vitamin D3 1 tablet PO DAILY 09/02/19 05/15/20 [Calcium 500 + D] vitamin B complex [B 1 tablet PO DAILY 03/18/20 05/15/20 Complex-Vitamin B12] Allergies Allergy/AdvReac Type Severity Reaction Status Date / Time iohexol Allergy Severe Anaphylaxis Verified 05/15/20 16:12 [From contrast - CT, X-RAY] shellfish derived Allergy Severe Anaphylaxis Verified 05/15/20 16:12 Ishxcie-Zee-Qtc Reductase Allergy Severe Diarrhea Verified 05/15/20 16:12 Inhibitor iodine Allergy Mild Blister Verified 05/15/20 16:12 acetaminophen [From Vicodin] AdvReac Dizziness Verified 05/15/20 16:12 hydrocodone [From Vicodin] AdvReac Dizziness Verified 05/15/20 16:12 Review of Systems Review of Systems: Narrative: CONSTITUTIONAL: Denies fever, chills, sweats. EYES: Denies visual changes, redness, discharge. ENT: Denies rhinorrhea, congestion, sore throat, otalgia. CARDIOVASCULAR: Denies chest pain, palpitations, edema. RESPIRATORY: Denies dyspnea, wheezing, cough GASTROINTESTINAL: Denies abdominal pain, nausea, vomiting, diarrhea. GENITOURINARY: Denies dysuria, hematuria, abnormal discharge SKIN: Denies rash or itching. NEUROLOGIC: Denies numbness, or focal weakness. PSYCHIATRIC: Denies anxiety or depression. Left foot pain, with limping PMFSH Past Medical History Medical History Arthritis of right shoulder region BMI 27.0-27.9,adult DM2 (diabetes mellitus, type 2) A1C=7 (1/8/20) Dysphagia Encounter for Medicare annual wellness exam Gastric polyps GERD (gastroesophageal reflux disease) Hx of colonic polyps Hypercholesteremia Osteoporosis Right shoulder pain Rotator cuff arthropathy of right shoulder Surgical History Surgical History History of ankle surgery Right ORIF -2012 History of arthroscopy of right shoulder (~01/25/12) History of epicondylectomy Bilateral 2004 History of lumpectomy of both breasts 1985 History of partial hysterectomy History of tonsillectomy Hx of repair of rotator cuff Bilateral 2005 Status post reverse total arthroplasty of right shoulder Family History Family History Father Family history of osteoarthritis Sibling Family history of diabetes mellitus in first degree relative Diabetes mellitus Cancer Mother Acute myocardial infarction Hypertension Heart disease Social History Social History Social History: Patient lives at home with Fam, and son. She wishes Fam to be her surrogate MDM. She is listed as a FC. PCP is Dr. Lawrence whom she follows up with regularly Smoking status: Never smoker Second hand tobacco smoke exposure: No Alcohol intake: never Substance use: never Substance use type: does not use Additional living arrangements comments: - Fam Spiritual care concerns: No Comments At time of signature, I agree with nursing past medical, surgical, social and family history. There is no relevant family history pertinent to the presenting complaint. Patient's blood pressure is elevated she states that she thinks is d
== END 2020-05-15 17:17 | disposition home or self-care (01) ==
PROVIDERS: Emergency Provider Nurse Practitioner; PCP Internal Medicine
DX: M79.672 Pain in left foot (principal); M19.90 Unspecified osteoarthritis, unspecified site; E11.9 Type 2 diabetes mellitus without complications; K21.9 Gastro-esophageal reflux disease without esophagitis; E78.00 Pure hypercholesterolemia, unspecified; M81.0 Age-related osteoporosis without current pathological fracture
CPT/HCPCS: 73630; 99213; G0463

== ENCOUNTER 2020-10-11 04:34 | Observation (INO) | payer MEDICARE, SELFPAY ==
[2020-10-11] VITALS (24 sets, daily range): BP systolic 115–184; BP diastolic 47–78; PULSE 65–79; RESP 12–19; TEMP 36.7–36.9; O2SAT 92–100
--- NOTE | ~2020-10-11 | CT_ITS ---
EXAMINATION: CT abdomen pelvis wo con EXAM DATE: 10/11/2020 05:06 INDICATION: Right upper quadrant pain. TECHNIQUE: Spiral CT of the abdomen and pelvis was performed without contrast. Axial, coronal and s agittal images of the abdomen and pelvis were reviewed. The dose-length product (DLP) for this exami nation was 463.02 mGy-cm. The exposure was tailored according to patient size (auto mA exposure cont rol), and iterative reconstruction (ASIR) was used as additional dose reduction technique. There is no prior study for comparison. FINDINGS: The liver, spleen, adrenal glands and pancreas are unremarkable. Gallbladder is unremarkab le. Please note that noncalcified cholelithiasis was confirmed on a subsequent ultrasound. No biliary obstruction. There is 4 mm right inferior calyceal stone which is nonobstructing. The uterus is unr emarkable. Some diffuse bladder wall thickening, could indicate chronic cystitis. Acute cystitis no t excludable. There is no retroperitoneal or pelvic lymphadenopathy. There are no findings to suggest appendicitis. The stomach and small bowel are unremarkable. There is expected amount of colonic stool. No free intraperitoneal gas. The heart is normal in size. T here are no pericardial or pleural effusions. The lung bases are unremarkable. The bones are unrema rkable. IMPRESSION: 1. Nonobstructing small right kidney stone. 2. Mild diffuse bladder wall thickening. Reviewed, dictated and finalized at location A.
--- NOTE | ~2020-10-11 | US_ITS ---
EXAMINATION: US right upper quadrant EXAM DATE: 10/11/2020 07:39 INDICATION: Right upper quadrant pain. TECHNIQUE: Multiple grayscale and Doppler images of the abdomen right upper quadrant were obtained (b y a technologist who performed the scan) and subsequently reviewed. Correlation is made to CT abdomen pelvis obtained earlier same date. FINDINGS: The pancreatic head and body are normal in appearance. The pancreatic tail is not visualized. The l iver has normal echogenicity and contour. There are no focal liver lesions identified. There is no evidence of intrahepatic biliary duct dilation. Portal venous flow was seen in the hepatopedal, nor mal direction and has normal Doppler waveform. No right-sided hydronephrosis. Common bile duct measures 4 mm, which is normal. The gallbladder wall is 3 to 4 mm in thickness, with mild amount of distention. No sonographic evidence of pericholecystic fluid. Several gallstones id entified. Technologist performing exam reports patient did not demonstrate sonographic Vale's sign . Please note that this sign is less reliable in patients who have received pain medication. IMPRESSION: Cholelithiasis. Mildly thickened gallbladder wall. Findings nonspecific given absence of sonographic Vale's sign but cholecystitis not excludable. Consider HIDA scan. Reviewed, dictated and finalized at location A. IMPRESSION: Cholelithiasis. Mildly thickened gallbladder wall. Findings nonspec ific given absence of sonographic Vale's sign but cholecystitis not excludabl e. Consider HIDA scan.
[2020-10-11] MEDS: SODIUM CHLORIDE 0.9% IV 1,000 ML 999 ML IV CONT (04:57)
[2020-10-11] MEDS: ONDANSETRON INJ 4 MG/2 ML VIAL IV PUSH (04:57)
[2020-10-11] MEDS: MORPHINE SULFATE (*CRX) 4 MG/ML INJ IV PUSH ×3 (04:58→10:49)
[2020-10-11 05:02] LABS: Basophils Absolute Auto 0.1 K/mm3 (0.0-0.1); Basophils Percent Auto 0.5 % (0.2-1.2); Eosinophils Absolute Auto 0.2 K/mm3 (0-0.3); Eosinophils Percent Auto 1.8 % (0-4.4); Hematocrit 38.3 % (37.0-47.0); Immature Granulocyte Absolute 0.05 K/mm3 (0.00-0.031); Immature Granulocyte Percent A 0.4 % (0-0.5); Lymphocytes Absolute Auto 2.97 K/mm3 (0.9-3.2); Lymphocytes Percent Auto 22.8 % (18.3-44.2); Mean Corpuscular HGB Conc 31.3 g/dl (32-36); Mean Corpuscular Hemoglobin 26.7 pg (26-34); Mean Corpuscular Volume 85.1 fl (80-100); Mean Platelet Volume 10.9 fl (7.4-10.4); Monocytes Absolute Auto 0.8 K/mm3 (0.1-0.6); Monocytes Percent Auto 5.8 % (2.6-8.5); Neutrophils Percent Auto 68.7 % (45.5-73.1); Platelet Count Result 281 k/mm3 (150-375); Red Cell Distribution Width 13.7 % (11.5-14.5)
--- NOTE | 2020-10-11 05:09 | ECG_ITS ---
Measurements Intervals [facility] Rate: 65 P: 65 SC: 185 QRS: 24 QRSD: 91 T: 46 QT: 382 QTc: 399 Interpretive Statements SINUS RHYTHM BASELINE ARTIFACT- II, III, AVR, AVF, V3-V6 NORMAL ECG Electronically Signed On 10-11-2020 7:00:30 CDT by Kali Guaman D.O.
[2020-10-11 05:18] LABS: Alanine Aminotransferase 30 U/L (4-35); Albumin Level 4.1 g/dL (3.5-5.1); Alkaline Phosphatase 79 U/L (38-126); Anion Gap 11 mmol/L (8-16); Aspartate Amino Transferase 30 U/L (14-36); Bilirubin,Total 0.4 mg/dL (0.2-1.3); Blood Urea Nitrogen 15 mg/dL (7-17); Carbon Dioxide 23 mmol/L (22-30); Chloride 103 mmol/L (98-107); Estimated CRCL calculation 78 ml/min; Estimated Glomerular Filt Rate > 60; Glucose 185 mg/dL (65-110); Lipase 139 U/L (23-300); Potassium 3.9 mmol/L (3.4-5.0); Sodium 137 mmol/L (137-145)
--- NOTE | 2020-10-11 05:19 | ED.GENADULT ---
HPI - General Adult General Chief complaint: Chest Pain <Balaji Merida MD - Last Filed: 10/11/20 06:06> Stated complaint: cp since 2pm <Balaji Merida MD - Last Filed: 10/11/20 06:06> Time Seen by Provider: 10/11/20 04:37 <Balaji Merida MD - Last Filed: 10/11/20 06:06> History of Present Illness HPI narrative: Patient is a 75-year-old female who presents ER with epigastric and right upper quadrant tenderness. Sharp and sudden onset. Occurred at 2 AM. Persistent since then. Radiates to back. Associate with nausea but no vomiting. Has had similar symptoms 3 times this week all occurring while sleeping. No issues with eating. Denies urinary frequency/urgency/dysuria. No chest pain or chest pressure to breathing. <Balaji Merida MD - Last Filed: 10/11/20 06:06> Related Data Home medications: Home Medications Medication Instructions Recorded Confirmed vitamin B complex [B 1 tablet PO DAILY 03/18/20 07/12/20 Complex-Vitamin B12] calcium carbonate 500 mg calcium 500 mg PO DAILY 07/12/20 07/12/20 (1,250 mg) chewable tablet multivitamin 1 tablet PO DAILY 07/12/20 07/12/20 <Balaji Merida MD - Last Filed: 10/11/20 06:06> Allergies/adverse reactions: Allergies Allergy/AdvReac Type Severity Reaction Status Date / Time iohexol Allergy Severe Anaphylaxis Verified 09/29/20 09:03 [From contrast - CT, X-RAY] shellfish derived Allergy Severe Anaphylaxis Verified 09/29/20 09:03 Nsuqtnp-Evi-Jum Reductase Allergy Severe Diarrhea Verified 09/29/20 09:03 Inhibitor iodine Allergy Mild Blister Verified 09/29/20 09:03 acetaminophen [From Vicodin] AdvReac Dizziness Verified 09/29/20 09:03 hydrocodone [From Vicodin] AdvReac Dizziness Verified 09/29/20 09:03 <Balaji Merida MD - Last Filed: 10/11/20 06:06> Review of Systems Review of Systems: All systems reviewed & are unremarkable except as noted in HPI and below <Balaji Merida MD - Last Filed: 10/11/20 06:06> Constitutional: Constitutional: Denies chills, Denies fever(s) and Denies weakness <Balaji Merida MD - Last Filed: 10/11/20 06:06> ENT: Denies nasal congestion and Denies sore throat <Balaji Merida MD - Last Filed: 10/11/20 06:06> Cardiovascular: Cardiovascular: Denies chest pain and Denies radiating jaw, neck or arm pain <Balaji Merida MD - Last Filed: 10/11/20 06:06> Respiratory: Respiratory: Denies cough and Denies dyspnea <Balaji Merida MD - Last Filed: 10/11/20 06:06> Gastrointestinal: Gastrointestinal: Reports abdominal pain, Denies diarrhea, Reports nausea and Denies vomiting <Balaji Merida MD - Last Filed: 10/11/20 06:06> Genitourinary: Genitourinary: Denies nocturia, Denies flank pain and Denies urinary incontinence <Balaji Merida MD - Last Filed: 10/11/20 06:06> [facility] Past Medical History Medical History: Medical History (Updated 10/11/20 @ 10:24 by Ian Nathan MD) Arthritis of right shoulder region BMI 26.0-26.9,adult BMI 27.0-27.9,adult DJD (degenerative joint disease), multiple sites DM2 (diabetes mellitus, type 2) A1C=7 (02/26/19) Dysphagia Encounter for Medicare annual wellness exam Gastric polyps GERD (gastroesophageal reflux disease) Hx of colonic polyps Hypercholesteremia Osteoporosis Right shoulder pain Rotator cuff arthropathy of right shoulder <Balaji Merida MD - Last Filed: 10/11/20 06:06> Surgical History Surgical History: Surgical History History of ankle surgery Right ORIF -2012 History of arthroscopy of right shoulder (~01/25/12) History of epicondylectomy Bilateral 2004 History of lumpectomy of both breasts 1985 History of partial hysterectomy History of tonsillectomy Hx of repair of rotator cuff Bilateral 2004 Status post reverse total arthroplasty of right shoulder (~09/30/19) <Balaji Merida MD - Last Filed: 10/11/20 06:06>
[2020-10-11 05:29] LABS: Troponin I < 0.012 ng/mL (0.000-0.034)
[2020-10-11 06:30] LABS: Add Urine Microscopic? NO; Appearance Urine Clear (Clear); Bilirubin Urine Negative (Negative); Blood Urine Negative (Negative); Color Urine Straw (Yellow); Glucose Urine UA Negative (Negative); Ketones Urine Negative (Negative); Leukocyte Esterase Ur Negative LEU/UL (Negative); Nitrate Urine Negative (Negative); Protein Urine Negative (Negative); Specific Grav Ur 1.011 (1.001-1.035); Urobilinogen Urine Negative mg/dL (<2.0)
[2020-10-11] MEDS: ERTAPENEM 1 GM/NS 50 ML 1 GM/50 ML BAG IVPB (10:48)
--- NOTE | 2020-10-11 13:10 | PM.IMHP ---
H&P: HPI History of Present Illness Date/Time: 10/11/20 13:10 Chief Complaint: Epigastric pain Narrative: This is a 75-year-old woman who presented to the emergency department with epigastric pain that has been constant since last night. She states that 3 days ago she had epigastric pain that lasted about 2 hours. She had another episode like that 2 days ago as well. She had eaten a fried fish sandwich for dinner last night. She denies any nausea or vomiting. She has not had episodes like this before. She denies any change in bowel habits. She does have a history of GERD but states that this pain and the symptoms have been different. Review of Systems Review of Systems: All systems reviewed & are unremarkable except as noted in HPI and below Constitutional: Constitutional: Denies chills and Denies fever(s) Eyes: Eyes: Denies change in vision ENT: Denies hearing loss, Denies neck pain and Denies sore throat Cardiovascular: Cardiovascular: Denies chest pain and Denies dyspnea Respiratory: Respiratory: Denies cough, Denies dyspnea and Denies wheezing Gastrointestinal: Gastrointestinal: Reports as per HPI Genitourinary: Genitourinary: Denies hematuria and Denies dysuria Musculoskeletal: Musculoskeletal: Denies arthralgias, Denies joint swelling and Denies neck pain Allergic/Immunologic: Allergic/Immunologic: Denies wheezing PMF Past Medical History Medical History Arthritis of right shoulder region BMI 26.0-26.9,adult BMI 27.0-27.9,adult DJD (degenerative joint disease), multiple sites DM2 (diabetes mellitus, type 2) A1C=7 (02/26/19) Dysphagia Encounter for Medicare annual wellness exam Gastric polyps GERD (gastroesophageal reflux disease) Hx of colonic polyps Hypercholesteremia Osteoporosis Right shoulder pain Rotator cuff arthropathy of right shoulder Surgical History Surgical History History of ankle surgery Right ORIF -2012 History of arthroscopy of right shoulder (~01/25/12) History of epicondylectomy Bilateral 2004 History of lumpectomy of both breasts 1985 History of partial hysterectomy History of tonsillectomy Hx of repair of rotator cuff Bilateral 2004 Status post reverse total arthroplasty of right shoulder (~09/30/19) Family History Family History Father Family history of osteoarthritis Sibling Family history of diabetes mellitus in first degree relative Diabetes mellitus Cancer Mother Acute myocardial infarction Hypertension Heart disease Social History Social History Social History: Patient lives at home with Fam, and son. She wishes Fam to be her surrogate MDM. She is listed as a FC. PCP is Dr. Lawrence whom she follows up with regularly Smoking status: Never smoker Second hand tobacco smoke exposure: No Alcohol intake: never Substance use: never Substance use type: does not use Additional living arrangements comments: - Fam Spiritual care concerns: No Meds Home Medications and Allergies Home Medications Medication Instructions Recorded Confirmed Type vitamin B complex [B 1 tablet PO DAILY 03/18/20 07/12/20 History Complex-Vitamin B12] calcium carbonate 500 mg calcium 500 mg PO DAILY 07/12/20 07/12/20 History (1,250 mg) chewable tablet multivitamin 1 tablet PO DAILY 07/12/20 07/12/20 History esomeprazole magnesium 40 mg 40 mg PO BID #180 cap 07/22/20 Rx capsule,delayed release ezetimibe 10 mg tablet 10 mg PO DAILY #90 tablet 07/22/20 Rx sitagliptin 100 mg tablet See Rx Instructions .ROUTE 07/22/20 Rx .COMPLEX #90 tablet alirocumab 75 mg/mL subcutaneous 75 mg SUBCUT Q14D #2 ml 09/02/20 Rx pen injector Allergies Allergy/AdvReac Type Severity Reaction Status Date
--- NOTE | 2020-10-11 13:20 | WPDANESEPPF ---
Anes - Initial Pre Proc Eval Procedure: Operation Date: 10/11/20 15:00 Proposed Procedures p Laparoscopic Cholecystectomy,Possible Open - Iglesia Lemos DO Date/Time: 10/11/20 13:20 Surgeon: Iglesia Lemos DO Pre Op Diagnosis: Acute cholecystitis Patient Data Age: 75 Gender: F Height: 1.57 m Weight: 56 kg Last Vital Signs Temp 36.9 C 10/11/20 04:38 Pulse 67 10/11/20 11:45 Resp 12 10/11/20 11:45 BP 115/61 10/11/20 11:45 Pulse Ox 94 10/11/20 11:45 Allergies Allergy/AdvReac Type Severity Reaction Status Date / Time iohexol Allergy Severe Anaphylaxis Verified 10/11/20 14:04 [From contrast - CT, X-RAY] shellfish derived Allergy Severe Anaphylaxis Verified 10/11/20 14:04 Qwoayqy-Goe-Zba Reductase Allergy Severe Diarrhea Verified 10/11/20 14:04 Inhibitor iodine Allergy Mild Blister Verified 10/11/20 14:04 acetaminophen [From Vicodin] AdvReac Dizziness Verified 10/11/20 14:04 hydrocodone [From Vicodin] AdvReac Dizziness Verified 10/11/20 14:04 Home Medications Medication Instructions Recorded Confirmed Type vitamin B complex [B 1 tablet PO DAILY 03/18/20 07/12/20 History Complex-Vitamin B12] calcium carbonate 500 mg calcium 500 mg PO DAILY 07/12/20 07/12/20 History (1,250 mg) chewable tablet multivitamin 1 tablet PO DAILY 07/12/20 07/12/20 History esomeprazole magnesium 40 mg 40 mg PO BID #180 cap 07/22/20 Rx capsule,delayed release ezetimibe 10 mg tablet 10 mg PO DAILY #90 tablet 07/22/20 Rx sitagliptin 100 mg tablet See Rx Instructions .ROUTE 07/22/20 Rx .COMPLEX #90 tablet alirocumab 75 mg/mL subcutaneous 75 mg SUBCUT Q14D #2 ml 09/02/20 Rx pen injector Laboratory Tests 10/11/20 10/11/20 10/11/20 04:54 04:54 06:20 WBC 13.0 K/mm3 H K/mm3 (4.5-10.0) RBC 4.50 M/mm3 M/mm3 (4.2-5.4) Hgb 12.0 g/dL g/dL (12.0-15.0) Hct 38.3 % % (37.0-47.0) MCV 85.1 fl fl (80-100) MCH 26.7 pg pg (26-34) MCHC 31.3 g/dl L g/dl (32-36) RDW 13.7 % % (11.5-14.5) Plt Count 281 k/mm3 k/mm3 (150-375) MPV 10.9 fl H fl (7.4-10.4) Immature Gran % (Auto) 0.4 % % (0-0.5) Neut % (Auto) 68.7 % % (45.5-73.1) Lymph % (Auto) 22.8 % % (18.3-44.2) Castro % (Auto) 5.8 % % (2.6-8.5) Eos % (Auto) 1.8 % % (0-4.4) Baso % (Auto) 0.5 % % (0.2-1.2) Lymph # (Auto) 2.97 K/mm3 K/mm3 (0.9-3.2) Castro # (Auto) 0.8 K/mm3 H K/mm3 (0.1-0.6) Eos # (Auto) 0.2 K/mm3 K/mm3 (0-0.3) Baso # (Auto) 0.1 K/mm3 K/mm3 (0.0-0.1) Abs Immat Gran (auto) 0.05 K/mm3 H K/mm3 (0.00-0.031) Absolute Neuts (auto) 9.0 K/mm3 H K/mm3 (1.3-6.7) Absolute Nucleated RBC 0.0 K/mm3 K/mm3 (0.0-0.012) Nucleated RBC % 0.0 % % (0.0-0.2) Sodium 137 mmol/L mmol/L (137-145) Potassium 3.9 mmol/L mmol/L (3.4-5.0) Chloride 103 mmol/L mmol/L (98-107) Carbon Dioxide 23 mmol/L mmol/L (22-30) Anion Gap 11 mmol/L mmol/L (8-16) BUN 15 mg/dL D mg/dL (7-17) Creatinine 0.40 mg/dL L mg/dL (0.7-1.0) Estim Creat Clear Calc 78 ml/min ml/min Estimated GFR > 60 (59 - ) Glucose 185 mg/dL H mg/dL (65-110) Calcium 9.0 mg/dL mg/dL (8.4-10.2) Total Bilirubin 0.4 mg/dL mg/dL (0.2-1.3) AST 30 U/L U/L (14-36) ALT 30 U/L U/L (4-35) Alkaline Phosphatase 79 U/L U/L (38-126) Troponin I < 0.012 ng/mL ng/mL (0.000-0.034) Total Protein 7.0 g/dL g/dL (6.3-8.2) Albumin 4.1 g/dL g/dL (3.5-5.1) Lipase 139 U/L U/L (23-300) Urine Color Straw (Yellow) Urine Appearance Clear (Clear) Urine pH 6.0 (5.0-9.0) Ur Specific [place] 1.011
[2020-10-11] MEDS: fentaNYL CITRATE INJ (*CRX) 100 MCG/2 ML VIAL 50 MCG IV PUSH (13:54)
[2020-10-11] MEDS: LACTATED RINGERS 1,000 ML 30 ML IV CONT ×2 (13:56→16:27)
[2020-10-11 14:04] LABS: Glucose Point of Care 119 mg/dl (65-105)
--- NOTE | 2020-10-11 15:15 | WPDHPUPDATE1 ---
History and Physical Update Update Date/Time: 10/11/20 15:15 History and Physical has been reviewed, including an updated exam of the patient. There are NO changes in the patient's condition. Risks, benefits, and alternatives have been discussed and questions answered. Patient agrees to proceed with procedure.
[2020-10-11] MEDS: BUPIVACAINE/EPINEPHRINE 0.5% 30 ML VIAL INFILTRATE (15:55)
--- NOTE | 2020-10-11 16:24 | W.PM.PROC2 ---
Procedure Note - Detailed Date of Procedure 10/11/20 Pre-op Diagnosis Acute cholecystitis Post-op Diagnosis same Procedure Performed Laparoscopic Cholecystectomy Surgeon Iglesia Lemos, DO Anesthesia general and local (0.5% bupivacaine with epinephrine) Indications This is a 75-year-old woman who presented to the emergency department with upper abdominal pain that started last night. She has had a couple episodes like this in the past 2 days but last night her pain became constant. In the emergency department she was noted to have an elevated white blood count and ultrasound showed evidence of acute calculous cholecystitis. Discussions were made with the patient about treatment options and decision was made to proceed with urgent laparoscopic cholecystectomy, possible open. Findings Laparoscopic cholecystectomy was performed. The gallbladder was edematous and dilated. There were multiple gallstones within the gallbladder. The cystic duct appeared normal in size. No other intra-abdominal abnormalities were noted. The gallbladder was removed and sent to the lab for pathology. Description of Procedure Procedure as well as risks, benefits, and alternatives were discussed with patient. Written consent was obtained and placed in chart prior to procedure. The patient was brought back to surgical suite. Patient was placed in supine position on operating table. Time-out was done to confirm patient and procedure. Patient was then intubated by the anesthesia department. Abdomen was prepped and draped in sterile fashion using chlorhexidine prep. 0.5% bupivacaine with epinephrine was infiltrated at each site of incision. A 5 millimeter incision was made near the umbilicus, and a 5 millimeter Optiview trocar was advanced through the abdominal layers under direct visualization. Once inside the abdominal cavity, carbon dioxide was insufflated to create a pneumoperitoneum. The camera was inserted and the abdomen was inspected. No immediate abnormalities were identified. The patient was placed in reverse Trendelenburg position and rotated slightly to the left. An 11 millimeter incision was made in the subxiphoid region, and an 11 millimeter trocar was inserted under direct visualization. Two 5 millimeter incisions were made in the right upper quadrant, and two 5 millimeter trocars were inserted under direct visualization. The gallbladder was identified and grasped at the fundus and retracted superiorly. It was then grasped at the infundibulum retracted laterally. Careful dissection around the neck of the gallbladder was performed using blunt dissection with a [place] grasper and hook electrocautery. The cystic duct was identified, and a window was created behind it. The cystic artery was also identified and a window was created behind it. The critical view of safety was identified, visualizing the cystic duct running directly into the neck of the gallbladder, and the cystic artery running directly into the wall of the gallbladder. A 5 millimeter clip sap technical developer was then used to place 2 clips proximally and 1 clip distally on both the cystic duct and cystic artery. They were then both transected using endoscopic scissors. Once safely away from the matt hepatitis, the gallbladder was dissected free from the liver bed using hook electrocautery. Hemostasis was achieved along the way. The gallbladder was removed completely and then removed through the subxiphoid port. The liver bed was then inspected. Hemostasis appeared adequate, and our clips appeared secure. The area was gently irrigated with sterile saline. No other abnormalities were seen. The patient was flattened out in bed, and 1 final inspection was made around the abdominal cavity. The subxiphoid port was removed, and a Simone Waldemar cone was used to approximate the fascia with an 0-Vicryl simple interrupted suture. The remaining ports were then removed under direct visualization, the camera was
[2020-10-11 16:56] LABS: Glucose Point of Care 176 mg/dl (65-105)
[2020-10-11] MEDS: hydrALAZINE HCL 20 MG/ML VIAL 10 MG IV PUSH (17:01)
[2020-10-11] MEDS: fentaNYL CITRATE INJ (*CRX) 100 MCG/2 ML VIAL 25 MCG IV PUSH (17:40)
[2020-10-11] MEDS: KETOROLAC 30 MG/ML VIAL (*BKC) 15 MG IV PUSH (17:50)
--- NOTE | 2020-10-14 11:10 | PM.DS ---
DS: Admitting Diagnosis Admitting Diagnosis acute calculous cholecystitis. DS: Discharge Diagnosis Discharge Diagnosis (1) Acute cholecystitis: Code(s): K81.0 - Acute cholecystitis Status: Acute DS: Summary Hospital Course Reason for hospitalization: Acute cholecystitis. Hospital Course: This is a 75-year-old woman who presented to the emergency department on 10/11/2020 with epigastric abdominal pain. She was found to have a slightly elevated white blood count an imaging showed evidence of acute cholecystitis. Discussions were made with the patient about her treatment options and decision was made to proceed with laparoscopic cholecystectomy. Laparoscopic cholecystectomy was performed on 10/11/2020. Surgery was uncomplicated. She was recovered postoperatively, and after several hours she was tolerating low-fat diet and her vitals remained stable with pain controlled. She was then discharged on 10/11/2020. Status at Discharge Functional status at discharge: independent ambulation Overall status at discharge: patient is progressing back to baseline Time Spent with Patient Time attestation: Total time spent providing and/or coordinating discharge services: Time spent: Less than 30 minutes Exam Narrative: Unchanged from preop exam except for surgical changes. DS: Data Data Completed and Pending Completed studies during hospitalization: Pending at discharge 10/11/20 15:49 Surgical [PTH] Routine Imaging Radiologist's impression: ITS Impressions Upper Quadrant Ultrasound 10/11/20 07:47 IMPRESSION: Cholelithiasis. Mildly thickened gallbladder wall. Findings nonspecific given absence of sonographic Vale's sign but cholecystitis not excludable. Consider HIDA scan. Abdomen/Pelvis CT 10/11/20 07:50 IMPRESSION: 1. Nonobstructing small right kidney stone. 2. Mild diffuse bladder wall thickening. Discharge Plan Discharge Attending physician on discharge: Iglesia Sagastume Consulting providers: Yassine Ragsdale ; Kali Guaman Discharging Clinician: Iglesia Sagastume Patient Disposition: Home, Self-Care Activity: other - see discharge instructions Diet: low fat Wound Care Instructions: other - see discharge instructions Discharge Instructions: DISCHARGE INSTRUCTION SHEET FOR HERNIA, GALLBLADDER AND APPENDIX SURGERIES DR. SAGASTUME PATIENT TO TAKE HOME 1. May shower in 24 hours, no soaking in bath x 2weeks. 2. Call office for: Wound increasingly painful or bleeding Vomiting Fever of greater than 101 degrees 3. If no bowel movement for three days, take 1 oz. (30 ml) Milk of Magnesia or MiraLax 17g 1 to 2 times daily. 4. No heavy lifting > 10-15 pounds x weeks for hernia repairs and 2 weeks for laparoscopic cholecystectomy or appendectomy. 5. No driving for 3 days or while taking narcotic pain medications. 6. Ice to surgical site for 48 hours (30 min on, then 30 min off). 7. Up walking 10-30 minutes three times per day. 8. Resume previous home medications. 9. Follow-up 10-14 days in office for wound check or as previously scheduled. ([phone]) 10. Oral pain medications prescription to be sent to pharmacy. Take Tylenol 500mg every 6 hours and Ibuprofen 600mg every 6 hours for the first 2 days, then as needed. 11. NUTRITION: Start out by drinking fluids and increase your diet as tolerated. If you experience nausea, try dry toast, crackers, and 7-UP. If nausea or vomiting persists, contact your surgeon?s office. 12. Gallbladders-Low Fat Diet for 2 weeks (send care note of low fat diet) 13. Inguinal Hernias-wear scrotal support for 48 hours 14. Abdominal Hernias-if sent home with abdominal binder, wear for the first 2 weeks (may remove to shower or at night to sleep).
== END 2020-10-11 18:34 | disposition home or self-care (01) ==
LOC: ANHED 10:24 → ANH3MEDSUR 12:38
PROVIDERS: Emergency Medicine; Admitting Provider Surgery; Emergency Provider Family Medicine; PCP Internal Medicine; Visit Provider Surgery
PROC: 0FT44ZZ Resection of Gallbladder, Percutaneous Endoscopic Approach (ICD-10-PCS; CPT 47562; principal; 2020-10-11 15:00)
DX: K80.10 Calculus of gallbladder with chronic cholecystitis without obstruction (principal); K21.9 Gastro-esophageal reflux disease without esophagitis; E11.9 Type 2 diabetes mellitus without complications; Z79.84 Long term (current) use of oral hypoglycemic drugs
CPT/HCPCS: 47562; 36415; 74176; 76705; 80053; 81003; 82948; 83690; 84484; 85025; 88304; 93005; 96361; 96365; 96375; 96376; 99285; G0378; J0131; J0360; J1100; J1335; J1885; J2270; J2405; J2704; J3010; J7030; J7120

== ENCOUNTER 2020-11-23 09:17 | Outpatient (CLI) | payer MEDICARE, SELFPAY ==
--- NOTE | ~2020-11-23 | XR_ITS ---
EXAMINATION: XR foot LT standing 2V DATE: 11/23/2020 09:41 INDICATION: Unspecified left foot injury TECHNIQUE: Dorsoplantar and lateral views of the left foot were obtained. COMPARISON: 05/15/2020 FINDINGS: Alignment is normal. No fracture. Mild polyarticular osteoarthritis at the first metatarsophalangeal and several tarsal metatarsal and interphalangeal joints. Diffuse osteopenia. IMPRESSION: 1. No acute osseous abnormality. Reviewed, dictated and finalized at location B.
== END 2020-11-23 09:18 | disposition home or self-care (01) ==
PROVIDERS: PCP Internal Medicine; Visit Provider Internal Medicine
DX: S99.922A Unspecified injury of left foot, initial encounter (principal)
CPT/HCPCS: 73620

== ENCOUNTER → 2021-03-29 11:13 | Outpatient (CLI) | payer MEDICARE, SELFPAY ==
--- NOTE | ~2021-03-29 | MM_ITS ---
EXAMINATION: MM screening vincent BI w karol HISTORY: Screening TECHNIQUE: Craniocaudal and mediolateral oblique 3-D tomosynthesis images were obtained and synthetic 2-D images were generated. CAD analysis was submitted and interpreted. COMPARISON: Comparison to multiple prior studies sequentially, with oldest reviewed study dated 04/30. BREAST PARENCHYMAL COMPOSITION: Breast composed of scattered areas of fibroglandular density FINDINGS: There is no evidence of suspicious mass, calcification, or architectural distortion to sugg est malignancy in either breast. There has been no suspicious interval change. IMPRESSION: 1. No mammographic evidence of malignancy. 2. Recommend routine screening mammography in one year. BI-RADS Category 1: Negative Reviewed, dictated and finalized at location A. RA MAKER
== END ==
PROVIDERS: PCP Internal Medicine; Visit Provider Internal Medicine
DX: Z12.31 Encounter for screening mammogram for malignant neoplasm of breast (principal)
CPT/HCPCS: 77063; 77067

== ENCOUNTER 2021-06-06 00:35 | Day surgery (SDC) | payer MEDICARE, SELFPAY ==
[2021-05-26 14:51] VITALS: BMI 27.8
[2021-06-06 10:40] VITALS: BP 147/69; PULSE 76; RESP 18; TEMP 36.9; O2SAT 98; BMI 27.8
--- NOTE | 2021-06-06 10:43 | WPDANESEPPF ---
Anes - Initial Pre Proc Eval Procedure: Operation Date: 06/06/21 11:45 Proposed Procedures p Esophagogastroduodenoscopy - Francisco Ny MD Date/Time: 06/06/21 10:43 Surgeon: Francisco Ny MD Pre Op Diagnosis: dysphagia Patient Data Age: 75 Gender: F Height: 1.55 m Weight: 66.9 kg Last Vital Signs Temp 36.9 C 06/06/21 10:40 Pulse 76 06/06/21 10:40 Resp 18 06/06/21 10:40 BP 147/69 H 06/06/21 10:40 Pulse Ox 98 06/06/21 10:40 Allergies Allergy/AdvReac Type Severity Reaction Status Date / Time iohexol Allergy Severe Anaphylaxis Verified 06/06/21 10:39 [From contrast - CT, X-RAY] shellfish derived Allergy Severe Anaphylaxis Verified 06/06/21 10:39 Mnklkpr-JRP-DgN Reductase Allergy Severe Diarrhea Verified 06/06/21 10:39 Inhibitor [Gdlcatg-Xmq-Rjc Reductase Inhibitor] iodine Allergy Mild Blister Verified 06/06/21 10:39 acetaminophen [From Vicodin] AdvReac Dizziness Verified 06/06/21 10:39 hydrocodone [From Vicodin] AdvReac Dizziness Verified 06/06/21 10:39 Home Medications Medication Instructions Recorded Confirmed Type vitamin B complex [B 1 tablet PO DAILY 03/18/20 05/26/21 History Complex-Vitamin B12] calcium carbonate 500 mg calcium 500 mg PO DAILY 07/12/20 05/26/21 History (1,250 mg) chewable tablet multivitamin 1 tablet PO DAILY 07/12/20 05/26/21 History esomeprazole magnesium 40 mg 40 mg PO BID #180 cap 07/22/20 05/26/21 Rx capsule,delayed release ezetimibe 10 mg tablet 10 mg PO DAILY #90 tablet 07/22/20 05/26/21 Rx Januvia 100 mg PO DAILY 10/11/20 05/26/21 History alirocumab 75 mg/mL subcutaneous 75 mg SUBCUT Q14D #2 ml 02/17/21 05/26/21 Rx pen injector Patient hx anesthesia problems: none Family hx anesthesia problems: none Results Review: All pre-operative results and documents have been reviewed as part of the pre-operative evaluation. [facility] Past Medical History Medical History Arthritis of right shoulder region BMI 26.0-26.9,adult BMI 27.0-27.9,adult DJD (degenerative joint disease), multiple sites DM2 (diabetes mellitus, type 2) A1C=7 (02/26/19) Dysphagia Encounter for Medicare annual wellness exam Gastric polyps GERD (gastroesophageal reflux disease) Hx of colonic polyps Hypercholesteremia Injury of toe Osteoporosis Right shoulder pain Rotator cuff arthropathy of right shoulder Schatzki's ring Surgical History Surgical History History of ankle surgery Right ORIF -2012 History of arthroscopy of right shoulder (~01/25/12) History of epicondylectomy Bilateral 2004 History of lumpectomy of both breasts 1985 History of partial hysterectomy History of tonsillectomy Hx laparoscopic cholecystectomy 10/11/20 Hx of repair of rotator cuff Bilateral 2004 S/P cholecystectomy Status post reverse total arthroplasty of right shoulder (~09/30/19) Family History Family History Father Family history of osteoarthritis Sibling Family history of diabetes mellitus in first degree relative Diabetes mellitus Cancer Mother Acute myocardial infarction Hypertension Heart disease Social History Social History Social History: Patient lives at home with Fam, and son. She wishes Fam to be her surrogate MDM. She is listed as a FC. PCP is Dr. Lawrence whom she follows up with regularly Smoking status: Never smoker Second hand tobacco smoke exposure: No Alcohol intake: never Substance use: never Substance use type: does not use Living arrangements: with family Additional living arrangements comments: - Fam Spiritual care concerns: No Anes - Eval Final PreProcedure Day of Procedure 06/06/21 10:43 Patient weight: overweight Heart: regular rate and rhythm Lungs:
[2021-06-06] MEDS: LACTATED RINGERS 1,000 ML 150 ML IV CONT (11:02)
--- NOTE | 2021-06-06 11:05 | PM.HPGS ---
History of Present Illness History of Present Illness Consent: Risks, benefits, and alternatives have been discussed and questions answered. Patient agrees to proceed with procedure. Chief complaint: dysphagia Narrative: Brina Paul is a 75 year old female who is having a great deal of difficulty with swallowing. Almost every meal now she finds that food hangs up. She has worse difficulty with meat, bread, rice, and even potatoes duct want to go down. She will slow down or stop eating for a while. The dysphagia may come on with her 1st bite or may come on during a meal. It feels as though it is getting caught in her neck but she can not regurgitate it back up. She states that if sometime back they performed a modified barium swallow using applesauce. She was then sent for speech therapy but it did not seem to help. Review of Systems Review of Systems: All systems reviewed & are unremarkable except as noted in HPI and below PMFSH Past Medical History Medical History Arthritis of right shoulder region BMI 26.0-26.9,adult BMI 27.0-27.9,adult DJD (degenerative joint disease), multiple sites DM2 (diabetes mellitus, type 2) A1C=7 (02/26/19) Dysphagia Encounter for Medicare annual wellness exam Gastric polyps GERD (gastroesophageal reflux disease) Hx of colonic polyps Hypercholesteremia Injury of toe Osteoporosis Right shoulder pain Rotator cuff arthropathy of right shoulder Schatzki's ring Surgical History Surgical History History of ankle surgery Right ORIF -2012 History of arthroscopy of right shoulder (~01/25/12) History of epicondylectomy Bilateral 2004 History of lumpectomy of both breasts 1985 History of partial hysterectomy History of tonsillectomy Hx laparoscopic cholecystectomy 10/11/20 Hx of repair of rotator cuff Bilateral 2004 S/P cholecystectomy Status post reverse total arthroplasty of right shoulder (~09/30/19) Family History Family History Father Family history of osteoarthritis Sibling Family history of diabetes mellitus in first degree relative Diabetes mellitus Cancer Mother Acute myocardial infarction Hypertension Heart disease Social History Social History Social History: Patient lives at home with Fam, and son. She wishes Fam to be her surrogate MDM. She is listed as a FC. PCP is Dr. Lawrence whom she follows up with regularly Smoking status: Never smoker Second hand tobacco smoke exposure: No Alcohol intake: never Substance use: never Substance use type: does not use Living arrangements: with family Additional living arrangements comments: - Fam Spiritual care concerns: No Meds Home Medications and Allergies Home Medications Medication Instructions Recorded Confirmed Type vitamin B complex [B 1 tablet PO DAILY 03/18/20 05/26/21 History Complex-Vitamin B12] calcium carbonate 500 mg calcium 500 mg PO DAILY 07/12/20 05/26/21 History (1,250 mg) chewable tablet multivitamin 1 tablet PO DAILY 07/12/20 05/26/21 History esomeprazole magnesium 40 mg 40 mg PO BID #180 cap 07/22/20 05/26/21 Rx capsule,delayed release ezetimibe 10 mg tablet 10 mg PO DAILY #90 tablet 07/22/20 05/26/21 Rx Januvia 100 mg PO DAILY 10/11/20 05/26/21 History alirocumab 75 mg/mL subcutaneous 75 mg SUBCUT Q14D #2 ml 02/17/21 05/26/21 Rx pen injector Allergies Allergy/AdvReac Type Severity Reaction Status Date / Time iohexol Allergy Severe Anaphylaxis Verified 06/06/21 10:39 [From contrast - CT, X-RAY] shellfish derived Allergy Severe Anaphylaxis Verified 06/06/21 10:39 Ziqlxdh-BLI-GvZ Reductase Allergy Severe Diarrhea Verified 06/06/21 10:39 Inhibitor [Ogvzhik-Vgd-Zho Reductase Inhibitor] iodine A
[2021-06-06 11:07] LABS: Glucose Point of Care 116 mg/dl (65-105)
[2021-06-06] MEDS: BENZOCAINE (*SP) 60 ML SPRAY CAN (HURRICAINE) 1 SPRAY MUCOUS MEM (11:19)
[2021-06-06 11:35] VITALS: BP 113/49; PULSE 74; RESP 18; O2SAT 100
[2021-06-06 11:45] VITALS: BP 115/50; PULSE 74; RESP 15; O2SAT 99
[2021-06-06 11:55] VITALS: BP 125/69; PULSE 72; RESP 15; O2SAT 98
== END 2021-06-06 12:10 | disposition home or self-care (01) ==
PROVIDERS: PCP Internal Medicine; Visit Provider Internal Medicine Gastroenterology
PROC: 0DJ08ZZ Inspection of Upper Intestinal Tract, Via Natural or Artificial Opening Endoscopic (ICD-10-PCS; CPT 43235; principal; 2021-06-06 11:45)
DX: R13.10 Dysphagia, unspecified (principal); K21.9 Gastro-esophageal reflux disease without esophagitis; K31.7 Polyp of stomach and duodenum; K21.00 Gastro-esophageal reflux disease with esophagitis, without bleeding; E11.9 Type 2 diabetes mellitus without complications; E78.00 Pure hypercholesterolemia, unspecified; M81.0 Age-related osteoporosis without current pathological fracture; Z79.84 Long term (current) use of oral hypoglycemic drugs
CPT/HCPCS: 43239; 43450; 82948; 88305; J2704; J7120

== ENCOUNTER → 2021-10-07 09:51 | Outpatient (CLI) | payer MEDICARE, SELFPAY ==
--- NOTE | ~2021-10-07 | MR_ITS ---
EXAMINATION: MR knee RT wo con DATE: 10/07/2021 10:31 INDICATION: Medial and posterior right knee pain since fall 11 days prior TECHNIQUE: Magnetic resonance imaging (MRI) of the right knee was performed without intravenous contr ast. Sequences included coronal PD-weighted FSE, coronal PD-weighted FS FSE, sagittal T2-weighted FS E, sagittal PD-weighted FS FSE and axial PD weighted fat saturated FSE. COMPARISON: Right knee pain dated 09/02/2021 FINDINGS: Medial compartment: Longitudinal horizontal tear extending to the free edge of the posterior horn of the medial meniscus. There is deep chondral fissuring without degenerative subchondral changes along the anterior to cent ral weightbearing medial femoral condyle. Articular cartilage along the medial tibial plateau is norm al. Lateral compartment: Small region of chondral fissuring with mild underlying subarticular edema-like signal change at the anteromedial aspect of the lateral tibial plateau. Shallow chondral surface regularity along the medi al side of the anterior weightbearing medial femoral condyle. Patellofemoral compartment: Partial-thickness cartilage loss and fissuring at the medial patellar facet. Ligaments and tendons: Posterior cruciate ligament is normal. Anterior cruciate ligament appears normal. There is however mi ld edema in the lateral femoral condyle along the medial side of the intercondylar notch in the regio n of the footplate of the anteromedial band of the anterior cruciate ligament. The medial collateral ligament and fibular collateral ligament complex are normal. The extensor mechanism is normal. The vi sualized medial and lateral hamstring tendons as well as the iliotibial band are normal. Fluid: Physiologic amount of fluid in the joint space. No loose osteochondral bodies identified. Osseous/other: There is bone marrow edema surrounding a nondisplaced small linear low signal intensity trabecular fr acture line along the posterior rim of the lateral tibial plateau. There is additional prominent elbert ow edema without evident fracture line at the medial side of the patella likely representing a bone c ontusion. No other fractures identified. No pathologic marrow replacing process. Mild fatty atrophy i n the distal semimembranosus muscle belly. Polyarticular severe and extensive fatty atrophy throughou t the visualized proximal aspect of the medial head of the gastrocnemius muscle. IMPRESSION: 1. Nondisplaced likely impaction fracture along the posterior rim of the lateral tibial plateau. This can be seen in setting of anterior cruciate ligament tear. The ligament appears grossly intact howev er there is additional marrow edema in the region of the femoral footplate of the anteromedial compon ent of the ligament which suggests possible reactive edema related to low-grade sprain. Alternatively this could represent a bone contusion. 2. Marrow edema likely related to bone contusion at the medial rim of the medial patellar facet. 3. Longitudinal horizontal tear of the posterior horn of the medial meniscus. 4. Mild tricompartmental osteoarthritis with small regions of high-grade chondromalacia at the latera l tibial plateau and moderate grade chondromalacia in the medial and patellofemoral compartments. 5. Fatty atrophy of indeterminate etiology involving the visualized proximal medial head of the gastr ic anemias muscle and small portion of the distal semimembranosus muscle. Reviewed, dictated and finalized at location A. IMPRESSION: 1. Nondisplaced likely impaction fracture along the posterior rim of the latera l tibial plateau. This can be seen in setting of anterior cruciate ligament tea r. The ligament appears grossly intact however there is additional marrow edema in t
== END ==
PROVIDERS: PCP Internal Medicine; Visit Provider Orthopaedic Surgery
DX: M17.11 Unilateral primary osteoarthritis, right knee (principal); S82.144A Nondisplaced bicondylar fracture of right tibia, initial encounter for closed fracture; S83.241A Other tear of medial meniscus, current injury, right knee, initial encounter
CPT/HCPCS: 73721

== ENCOUNTER 2021-10-20 00:16 | Day surgery (SDC) | payer MEDICARE, SELFPAY ==
[2021-10-14 13:47] VITALS: BMI 27.3
--- NOTE | 2021-10-14 13:58 | PC.NURSE ---
Report to the Outpatient Waiting Room, entrance under the green pavilion located off [facility], at time _0830_ on date _10/20/21_. OR Time: _1030_. - You and your visitor will be asked to self-screen and do not enter if you have any COVID symptoms. - Only one visitor and NO children visitors are allowed at this time. - The patient visitor is requested to leave or wait in car when not with patient due to restrictions. - A mask is required within the hospital. Patients may have clear liquids (water, carbonated beverages, clear teas, apple juice) until 3 hours prior to surgery (0730 AM) with a maximum of 20 ounces. - No food from midnight until time of surgery Take the following medications with a SIP of water the morning of surgery: _TYLENOL IF NEEDED_ Medications to discontinue per DR. MCDONALD - _IBUPROFEN 7 DAYS PRIOR TO SURGERY, Date to take last dose 10/14/21_ Please no make-up, nail french, hairspray, perfume, deodorant, or body powder the day of surgery. No jewelry (including any body piercings) or valuables the day of surgery, leave them at home. Please take a shower or bath the night before, or the morning of, surgery with an antibacterial soap. Wear comfortable, loose fitting clothing. Children are encouraged to wear pajamas. - Jewelry must be removed prior to entering the operating room. Rings and piercings that are not removed may be cut off. - The hospital will not accept responsibility for valuables. - Please leave all valuables, including medications, at home the day of surgery. If you are going home after surgery, a licensed nascar driver must drive you home. - NO public transportation without another adult. - We recommend that an adult stay with you for 24 hours following discharge. - We also recommend that you do not drive, make important decision, drink alcoholic beverages, or take any drugs that were not prescribed by your health care provider for at least 24 hours after your discharge time. For Pediatric surgeries, we recommend two adults accompany the child home (only one inside the building at this time). Follow any additional instructions given to you from your surgeon. If you or anyone in your household have experienced Covid symptoms in the past week, please notify your surgeon or the nurse liaison at the phone number below for possible testing. Telephone instructions given to ____PT and asked if any additional questions and then verbalized understanding. Patient advised to call surgeon office or pre surgery nurse liaison [phone] if any additional questions.
[2021-10-20] VITALS (9 sets, daily range): BP systolic 139–169; BP diastolic 57–72; PULSE 59–72; RESP 12–16; TEMP 36.3–36.5; O2SAT 96–100
--- NOTE | 2021-10-20 07:21 | WPDHPUPDATE1 ---
History and Physical Update Update Date/Time: 10/20/21 07:21 History and Physical has been reviewed, including an updated exam of the patient. There are NO changes in the patient's condition. Risks, benefits, and alternatives have been discussed and questions answered. Patient agrees to proceed with procedure.
[2021-10-20] MEDS: ACETAMINOPHEN 500 MG TABLET 1000 MG PO (09:12)
[2021-10-20] MEDS: LACTATED RINGERS 1,000 ML 30 ML IV CONT (09:38)
[2021-10-20 09:40] LABS: Glucose Point of Care 133 mg/dl (65-105)
--- NOTE | 2021-10-20 09:46 | WPDANESEPPF ---
Anes - Initial Pre Proc Eval Procedure: Operation Date: 10/20/21 10:30 Proposed Procedures p Arthroscopic Partial Medial Meniscectomy Right Knee - Jim Fink MD Date/Time: 10/20/21 09:46 Surgeon: Jim Fink MD Pre Op Diagnosis: medial meniscus tear right knee Patient Data Age: 76 Gender: F Height: 1.57 m Weight: 66.3 kg Last Vital Signs Temp 36.5 C 10/20/21 09:40 Pulse 72 10/20/21 09:40 Resp 16 10/20/21 09:40 BP 139/57 L 10/20/21 09:40 Pulse Ox 97 10/20/21 09:40 O2 Del Method Room Air 10/20/21 09:40 Allergies Allergy/AdvReac Type Severity Reaction Status Date / Time iohexol Allergy Severe Anaphylaxis Verified 10/20/21 09:03 [From contrast - CT, X-RAY] shellfish derived Allergy Severe Anaphylaxis Verified 10/20/21 09:03 Kjhwwip-ZEZ-KbE Reductase Allergy Severe Diarrhea Verified 10/20/21 09:03 Inhibitor [Xisxgjb-Phb-Ktw Reductase Inhibitor] iodine Allergy Mild Blister Verified 10/20/21 09:03 hydrocodone [From Vicodin] AdvReac Dizziness Verified 10/20/21 09:03 Home Medications Medication Instructions Recorded Confirmed Type calcium carbonate 500 mg calcium 500 mg PO DAILY 07/12/20 10/20/21 History (1,250 mg) chewable tablet (Calcium 500) multivitamin 1 tablet PO DAILY 07/12/20 10/20/21 History esomeprazole magnesium 40 mg 40 mg PO BID #180 caps 07/12/21 10/20/21 Rx capsule,delayed release (Nexium) alirocumab 75 mg/mL subcutaneous 75 mg subcut Q14D #2 mL 07/22/21 10/14/21 Rx pen injector (Praluent Pen) ezetimibe 10 mg tablet (Zetia) 10 mg PO DAILY #90 tabs 08/25/21 10/20/21 Rx acetaminophen 500 mg tablet 500 mg PO Q6H PRN Pain 10/14/21 10/20/21 History cyanocobalamin (vitamin B-12) 5,000 mcg PO QAM 10/14/21 10/20/21 History 5,000 mcg capsule ibuprofen 200 mg capsule 400 mg PO Q6H PRN Pain 10/14/21 10/20/21 History sitagliptin 100 mg tablet (Januvia) 100 mg QAM 10/14/21 10/20/21 History Laboratory Tests 10/20/21 09:37 POC Capillary Glucose 133 mg/dl H mg/dl (65-105) Patient hx anesthesia problems: none Family hx anesthesia problems: none Results Review: All pre-operative results and documents have been reviewed as part of the pre-operative evaluation. [facility] Past Medical History Medical History Arthritis of right shoulder region BMI 26.0-26.9,adult BMI 27.0-27.9,adult BPPV (benign paroxysmal positional vertigo) DJD (degenerative joint disease), multiple sites DM2 (diabetes mellitus, type 2) A1C=7 (02/26/19) Dysphagia Encounter for Medicare annual wellness exam Gastric polyps GERD (gastroesophageal reflux disease) Hx of colonic polyps Hypercholesteremia Injury of toe Osteoporosis Right shoulder pain Rotator cuff arthropathy of right shoulder Schatzki's ring Vertigo Surgical History Surgical History History of ankle surgery Right ORIF -2012 History of arthroscopy of right shoulder (~01/25/12) History of epicondylectomy Bilateral 2004 History of lumpectomy of both breasts 1985 History of partial hysterectomy History of tonsillectomy Hx laparoscopic cholecystectomy 10/11/20 Hx of repair of rotator cuff Bilateral 2004 S/P cholecystectomy Status post reverse total arthroplasty of right shoulder (~09/30/19) Family History Family History Father Family history of osteoarthritis Sibling Family history of diabetes mellitus in first degree relative Diabetes mellitus Cancer Mother Acute myocardial infarction Hypertension Heart disease Social History Social History Social History: Patient lives at home with Fam, and son. She wishes Fam to be her surrogate MDM. She is listed as a FC. PCP is Dr. Lawrence whom she follows up with regularly Sm
[2021-10-20] MEDS: KETOROLAC 15 MG/ML VIAL (*BKC) IV PUSH (10:28)
[2021-10-20] MEDS: ceFAZolin 2 GM/D5W 50 ML 2 GM/50 ML BAG IVPB (10:39)
[2021-10-20 11:47] LABS: Glucose Point of Care 114 mg/dl (65-105)
[2021-10-20] MEDS: fentaNYL CITRATE INJ (*CRX) 100 MCG/2 ML VIAL 25 MCG IV PUSH ×5 (11:57→12:10)
[2021-10-20] MEDS: HYDROmorphone HCL INJ (*CRX) 1 MG/ML SYR 0.25 MG IV PUSH ×2 (12:28→12:34)
[2021-10-20] MEDS: oxyCODONE HCL (*CRX) 5 MG TAB IR PO (13:02)
--- NOTE | 2021-10-20 16:48 | W.PM.PROC2 ---
Procedure Note - Detailed Date of Procedure 10/20/21 Pre-op Diagnosis Medial meniscus tear right knee Post-op Diagnosis Same Procedure Performed Arthroscopic partial medial meniscectomy, right knee. Surgeon Jim Fink MD Poultry Process Worker Zulema Murphy PA-C Anesthesia General Findings Extensive medial meniscus tear. Degenerative tissue required subtotal meniscectomy medial and posterior. Grade 2/Iii chondromalacia on the femur. Grade 1/2 on the tibia medially. Lateral compartment was almost entirely normal except for a small several mm area of fairly deep chondral ulceration at the anterior central portion of the weight-bearing tibia. The ACL and patellofemoral compartments were benign. No other significant synovitis or other processes. Description of Procedure The patient was identified and the surgical site confirmed and signed in the preoperative holding area. Antibiotics were started per protocol. She was brought to the operative room and transferred to the OR table. A general anesthetic was administered. Supine position with the operative lower extremity position in the leg rocha after placement of a well padded tourniquet. The leg support was lowered and the contralateral limb was supported with a soft bolster. The knee was prepped and draped in the usual sterile fashion. A time-out was performed. The portal sites were marked and infiltrated with 0.5% Marcaine 20 mL. The limb was exsanguinated and the tourniquet inflated to 300 mL Hg. Standard inferolateral and inferomedial portals were established. Inflow was obtained with the saline pump. The camera was introduced. Diagnostic inspection of the joint was accomplished. The meniscus was debrided with the arthroscopic shaver and punches until stable. The radiofrequency probe was also used for further d?bridement. The arthroscopic instruments were removed. The tourniquet released and wounds closed with subcutaneous 4-0 Monocryl absorbable suture. Steri strips and a sterile dressing were applied. A light elastic wrap was placed. The patient was extubated and brought to the recovery room in stable condition. Estimated Blood Loss -5.0 Drains No Complications No immediate complications Condition Stable Disposition PACU [facility] Billing Surgery - Charge Forward: Surgery Billing
== END 2021-10-20 13:57 | disposition home or self-care (01) ==
PROVIDERS: PCP Internal Medicine; Visit Provider Orthopaedic Surgery
PROC: (CPT 29870; principal; 2021-10-20 10:30)
DX: M23.331 Other meniscus derangements, other medial meniscus, right knee (principal); M94.261 Chondromalacia, right knee; E11.9 Type 2 diabetes mellitus without complications; E78.00 Pure hypercholesterolemia, unspecified; K21.9 Gastro-esophageal reflux disease without esophagitis; M81.0 Age-related osteoporosis without current pathological fracture; Z79.84 Long term (current) use of oral hypoglycemic drugs
CPT/HCPCS: 29881; 82948; A9270; J0690; J1170; J1885; J2405; J2704; J3010; J7120

== ENCOUNTER 2022-02-14 08:36 | Outpatient (CLI) | payer MEDICARE, SELFPAY ==
--- NOTE | ~2022-02-14 | XR_ITS ---
XR UGIAC w barium swallow DATE: 02/14/2022 09:36 INDICATION: Diaphragmatic hernia TECHNIQUE: Air-contrast upper gastrointestinal series 3.9 minutes fluoroscopy time 48.705 Gycm2 COMPARISON: None FINDINGS: There is cricopharyngeus muscle dysfunction. There is no associated Zenker's diverticulum. Iokl-hc-tohqqtkt sliding hiatal hernia, partially reducible, with prominent spontaneous gastroesophag eal reflux into the upper thoracic esophagus. No stricture, mucosal fold thickening, erosion, ulceration or intraluminal mass lesion of the esophag us, stomach or duodenum is detected. Status post cholecystectomy. IMPRESSION: Mild to moderate sliding hiatal hernia with prominent spontaneous gastroesophageal reflux into the upper thoracic esophagus Cricopharyngeus muscle dysfunction Reviewed, dictated and finalized at Location [facility]. Reviewed, dictated and finalized at location A. REACTOR OPERATOR HEAD IMPRESSION: Mild to moderate sliding hiatal hernia with prominent spontaneous g astroesophageal reflux into the upper thoracic esophagus Cricopharyngeus muscle dysfunction
== END 2022-02-14 08:37 | disposition home or self-care (01) ==
PROVIDERS: PCP Internal Medicine; Visit Provider Nurse Practitioner
DX: R13.12 Dysphagia, oropharyngeal phase (principal); K31.7 Polyp of stomach and duodenum; K21.9 Gastro-esophageal reflux disease without esophagitis; K44.9 Diaphragmatic hernia without obstruction or gangrene; R13.13 Dysphagia, pharyngeal phase
CPT/HCPCS: 74246

== ENCOUNTER 2022-04-24 08:08 | Outpatient (CLI) | payer MEDICARE, SELFPAY ==
--- NOTE | ~2022-04-24 | XR_ITS ---
MODIFIED ESOPHAGRAM HISTORY: Oropharyngeal dysphagia TECHNIQUE: Modified barium esophagram was performed on 04/24/2022. I administered fluoroscopy and perfo rmed the exam with speech pathologist. Patient was seated for lateral fluoroscopic imaging for inges tion of thin liquids, pudding, solids and quantified amounts, followed by thin liquids in uncontrolle d amounts. This was recorded on tape. A single fluoroscopic spot image was also recorded. The DAP for this procedure was 0.849 Gycm2. The amount of fluoroscopy time used during this procedure was 1.3 mi nutes. FINDINGS: Oral stage: Adequate function. Pharyngeal stage: There is reduced tongue base retraction and pharyngeal squeeze resulting in residue in the vallecula, piriform sinus and pharyngeal wall. No penetration or aspiration. Cervical/esophageal stage: Adequate function. IMPRESSION: Mild pharyngeal dysphagia without with increased residue but with no laryngeal penetratio n or aspiration. Please correlate with speech pathologist findings and specific feeding recommendatio ns. Reviewed, dictated and finalized at location A. NCE AND HAIRSPRING ASSEMBLER IMPRESSION: Mild pharyngeal dysphagia without with increased residue but with n o laryngeal penetration or aspiration. Please correlate with speech pathologist findings and specific feeding recommendations.
--- NOTE | 2022-04-24 10:24 | REHSTMBS ---
Assessment and note entered by Brina Myers SUTURE WINDER HAND Modified Barium Swallow Evaluation Feeding Type Recommended Oral Food Consistency Regular, Level 7 Liquid Consistency Thin (0) Treatment Recommendations Effortful Swallow,Tongue Base Exercise ST Clinical Summary MODIFIED BARIUM SWALLOW The patient was seen for a Modified Barium Swallow study at the request of her physician. She reports a long-standing history of dysphagia characterized as food hanging up in her throat causing her to have to use multiple swallows to clear. 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 Patient stated that the EGD's have helped in the past but not eliminated her problem. Additionally, she reports that several years ago she had a Modified Barium Swallow study and was seen for outpatient Speech Therapy for swallowing strengthening exercises and continues to complete some of them to this day. In observation, they may have helped but not eliminated the problem. She denies weight loss stating that she just continues to work her way through meals in spite of the difficulty. Today the patient was viewed in the upright position to the level of C5/C6. The most notable impairments observed were: poor base of tongue retraction and pharyngeal squeeze, allowing significant residue to remain in the valleculae and pyriform sinuses. There was also mild pharyngeal residue/coating after each swallow. Patient was shown the residue in the throat on the screen and voiced understanding. Patient was instructed in the use of three swallowing strengthening exercises: hard, effortful swallows, swallows using chin tuck against resistance (placed elbow on table, chin on fist, and press chin down into the fist when swallowing to facililtate increased effort), and Masaka procedure. Patient voiced and demonstrated good understanding of each exercises. She was instructed to complete each exercises 2-3 times in a row, then rotate anc continue until achieving
== END 2022-04-24 08:09 | disposition home or self-care (01) ==
PROVIDERS: PCP Internal Medicine; Visit Provider Internal Medicine Gastroenterology
DX: R13.12 Dysphagia, oropharyngeal phase (principal)
CPT/HCPCS: 92611

== ENCOUNTER 2022-05-18 00:07 | Day surgery (SDC) | payer MEDICARE, SELFPAY ==
[2022-05-09 12:58] VITALS: BMI 25.7
--- NOTE | 2022-05-17 14:16 | PM.HPGS ---
History of Present Illness History of Present Illness Consent: Risks, benefits, and alternatives have been discussed and questions answered. Patient agrees to proceed with procedure. Chief complaint: dysphagia Narrative: Brina Paul is a 76 year old female Who continues to have difficulty with swallowing.? This has been an issue for several years.? At 1 point I had found a Schatzki's ring that was dilated.? She later had a modified barium swallow that was abnormal.? She was then advised to see speech therapy for exercises.? She knows that she had about 3 office appointments.? She recently saw an Ear Nose and Throat physician at [facility] who did any laryngoscopy and said that her cricopharyngeus was prominent.? She told the patient that she would benefit from esophageal dilatation.? I reminded the patient that I did that last year when she had an EGD.? No stricture was seen at that time but a 46 Bulgarian bougie was passed empirically without resistance or difficulty.? She thinks she was better for a brief time afterwards. Now she states that anything she eats gives her difficulty, emphasizing?everything, even liquids like water will not go down. 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), multiple sites DM2 (diabetes mellitus, type 2) A1C=7 (02/26/19) Dysphagia Encounter for Medicare annual wellness exam Gastric polyps GERD (gastroesophageal reflux disease) GERD (gastroesophageal reflux disease) GERD with esophagitis Hx of colonic polyps Hypercholesteremia Injury of toe Oropharyngeal dysphagia Osteoporosis Right shoulder pain Rotator cuff arthropathy of right shoulder Schatzki's ring Vertigo Surgical History Surgical History History of ankle surgery Right ORIF -2012 History of arthroscopy of right shoulder (~01/25/12) History of epicondylectomy Bilateral 2005 History of lumpectomy of both breasts 1985 History of meniscectomy of right knee (~10/20/21) Partial medial meniscectomy History of partial hysterectomy History of tonsillectomy Hx laparoscopic cholecystectomy 10/11/20 Hx of repair of rotator cuff Bilateral 2005 S/P cholecystectomy Status post reverse total arthroplasty of right shoulder (~09/30/19) Family History Family History Father Family history of osteoarthritis Sibling Family history of diabetes mellitus in first degree relative Diabetes mellitus Cancer Mother Acute myocardial infarction Hypertension Heart disease Social History Social History Social History: Patient lives at home with Fam, and son. She wishes Fam to be her surrogate MDM. She is listed as a FC. PCP is Dr. Lawrence whom she follows up with regularly Smoking status: Never smoker Second hand tobacco smoke exposure: No Alcohol intake: never Substance use: never Substance use type: does not use Lack of Transportation: No Lack of Food: Never True Current Housing: I Have Housing Concerned About Future Housing: No Difficulty Paying Gas/Electric Bills: No Difficulty Paying for Meds: No Currently Unemployed: No Education: High School Diploma/GED Difficulty w/ Childcare or Family Care: No Living arrangements: with family Additional living arrangements comments: - Fam Occupation/Education: retired Spiritual care concerns: No Meds Home Medications and Allergies Home Medications Medication Instructions Recorded Confi
[2022-05-18 08:10] VITALS: BP 156/70; PULSE 71; RESP 18; TEMP 36.5; O2SAT 99
[2022-05-18 08:10] LABS: Glucose Point of Care 137 mg/dl (65-105)
[2022-05-18] MEDS: LACTATED RINGERS 1,000 ML 150 ML IV CONT (08:14)
--- NOTE | 2022-05-18 08:20 | WPDANESEPPF ---
Anes - Initial Pre Proc Eval Procedure: Operation Date: 05/18/22 09:30 Proposed Procedures p Esophagogastroduodenoscopy - Francisco Ny MD Date/Time: 05/18/22 08:20 Surgeon: Francisco Ny MD Pre Op Diagnosis: dysphagia Patient Data Age: 76 Gender: F Height: 1.57 m Weight: 64.9 kg Last Vital Signs Temp 36.5 C 05/18/22 08:10 Pulse 71 05/18/22 08:10 Resp 18 05/18/22 08:10 BP 156/70 H 05/18/22 08:10 Pulse Ox 99 05/18/22 08:10 O2 Del Method Room Air 05/18/22 08:10 Allergies Allergy/AdvReac Type Severity Reaction Status Date / Time iohexol Allergy Severe Anaphylaxis Verified 05/18/22 08:09 [From contrast - CT, X-RAY] shellfish derived Allergy Severe Anaphylaxis Verified 05/18/22 08:09 Uxyaxwu-INK-OfO Reductase Allergy Severe Diarrhea Verified 05/18/22 08:09 Inhibitor [Gvwnglm-Vpa-Kjq Reductase Inhibitor] chlorhexidine Allergy Intermediate Itching Verified 05/18/22 08:09 iodine Allergy Mild Blister Verified 05/18/22 08:09 hydrocodone [From Vicodin] AdvReac Dizziness Verified 05/18/22 08:09 Home Medications Medication Instructions Recorded Confirmed Type calcium carbonate 500 mg calcium 500 mg PO DAILY 07/12/20 05/18/22 History (1,250 mg) chewable tablet (Calcium 500) multivitamin 1 tablet PO DAILY 07/12/20 05/18/22 History cyanocobalamin (vitamin B-12) 5,000 mcg PO QAM 10/14/21 05/18/22 History 5,000 mcg capsule ibuprofen 200 mg capsule 400 mg PO Q6H PRN Pain 10/14/21 05/18/22 History esomeprazole magnesium 40 mg 40 mg PO BID #180 caps 01/18/22 05/18/22 Rx capsule,delayed release (Nexium) ezetimibe 10 mg tablet (Zetia) 10 mg PO DAILY #90 tabs 01/18/22 05/18/22 Rx sitagliptin phosphate 100 mg 100 mg PO QAM #90 tabs 01/18/22 05/18/22 Rx tablet (Januvia) alirocumab 75 mg/mL subcutaneous See Rx Instructions .Route 05/12/22 05/18/22 Rx pen injector (Praluent Pen) .COMPLEX #2 mL Laboratory Tests 05/18/22 08:07 POC Capillary Glucose 137 mg/dl H mg/dl (65-105) Patient hx anesthesia problems: none Family hx anesthesia problems: none Results Review: All pre-operative results and documents have been reviewed as part of the pre-operative evaluation. [facility] Past Medical History Medical History Arthritis of right shoulder region BMI 26.0-26.9,adult BMI 27.0-27.9,adult BPPV (benign paroxysmal positional vertigo) Colon cancer screening Cricopharyngeus muscle dysfunction DJD (degenerative joint disease), multiple sites DM2 (diabetes mellitus, type 2) A1C=7 (02/26/19) Dysphagia Encounter for Medicare annual wellness exam Gastric polyps GERD (gastroesophageal reflux disease) GERD (gastroesophageal reflux disease) GERD with esophagitis Hx of colonic polyps Hypercholesteremia Injury of toe Oropharyngeal dysphagia Osteoporosis Right shoulder pain Rotator cuff arthropathy of right shoulder Schatzki's ring Vertigo Surgical History Surgical History History of ankle surgery Right ORIF -2012 History of arthroscopy of right shoulder (~01/25/12) History of epicondylectomy Bilateral 2004 History of lumpectomy of both breasts 1985 History of meniscectomy of right knee (~10/20/21) Partial medial meniscectomy History of partial hysterectomy History of tonsillectomy Hx laparoscopic cholecystectomy 10/11/20 Hx of repair of rotator cuff Bilateral 2004 S/P cholecystectomy Status post reverse total arthroplasty of right shoulder (~09/30/19) Family History Family History Father Family history of osteoarthritis Sibling Family history of diabetes mellitus in first degree relative Diabetes mellitus Cancer Mother Acute myocardial infarction Hypertension Heart disease Social History Social History Social H
[2022-05-18 09:42] VITALS: BP 126/64; PULSE 78; RESP 16; O2SAT 100
[2022-05-18 09:52] VITALS: BP 128/70; PULSE 72; RESP 18; O2SAT 100
[2022-05-18 10:02] VITALS: BP 152/91; PULSE 70; RESP 18; O2SAT 100
== END 2022-05-18 10:18 | disposition home or self-care (01) ==
PROVIDERS: PCP Internal Medicine; Visit Provider Internal Medicine Gastroenterology
PROC: 0DJ08ZZ Inspection of Upper Intestinal Tract, Via Natural or Artificial Opening Endoscopic (ICD-10-PCS; CPT 43235; principal; 2022-05-18 09:30)
DX: R13.10 Dysphagia, unspecified (principal); K21.9 Gastro-esophageal reflux disease without esophagitis; K31.7 Polyp of stomach and duodenum; K44.9 Diaphragmatic hernia without obstruction or gangrene; Z79.84 Long term (current) use of oral hypoglycemic drugs; E78.00 Pure hypercholesterolemia, unspecified; E11.9 Type 2 diabetes mellitus without complications; M81.0 Age-related osteoporosis without current pathological fracture
CPT/HCPCS: 43251; 43450; 82948; 88305; J2704; J7120

== ENCOUNTER → 2022-06-08 10:07 | Outpatient (CLI) | payer MEDICARE, SELFPAY ==
--- NOTE | ~2022-06-08 | MM_ITS ---
EXAMINATION: MM screening [facility] BI w karol HISTORY: Screening mammogram TECHNIQUE: Craniocaudal and mediolateral oblique 3-D tomosynthesis images were obtained and synthetic 2-D images were generated. CAD analysis was submitted and interpreted. COMPARISON: 03/29/2021, 02/06/2020, 10/23/2018 BREAST PARENCHYMAL COMPOSITION: There are scattered areas of fibroglandular density. FINDINGS: No suspicious mass, calcification, or architectural distortion are identified in either carin ast to suggest malignancy. There has been no suspicious interval change. IMPRESSION: 1. No mammographic evidence of malignancy. 2. Recommend routine screening mammography in one year. BI-RADS Category 1: Negative Reviewed, dictated and finalized at location A.
== END ==
PROVIDERS: PCP Internal Medicine; Visit Provider Internal Medicine
DX: Z12.31 Encounter for screening mammogram for malignant neoplasm of breast (principal)
CPT/HCPCS: 77063; 77067

== ENCOUNTER → 2022-10-10 13:27 | Outpatient (CLI) | payer MEDICARE, SELFPAY ==
--- NOTE | ~2022-10-10 | MR_ITS ---
EXAMINATION: MR cervical spine wo con DATE: 10/10/2022 14:18 INDICATION: Disease of spinal cord, unspecified. TECHNIQUE: Magnetic resonance imaging (MRI) of the cervical spine was performed without intravenous c ontrast. Sequences included sagittal T2-weighted FSE, sagittal T2-weighted FS FSE, sagittal T1-weight ed FSE, axial MERGE, and axial T2-weighted FSE. COMPARISON: None FINDINGS: There is 7 degrees levocurvature of cervical spine. There is 2 mm anterolisthesis of C7 on T1. Vertebral body heights are normal. There is mildly decreased disc height at C3-C4, severely decre ased disc height at C4-C5 and C5-C6, and moderately decreased disc height at C6-C7 and C7-T1. The spi nal cord signal intensity is normal. Mild motion artifact decreases sensitivity and specificity for s devan cord lesions. The following disc levels are specifically discussed: C2-C3: The disc does not extend beyond the endplate margin. There is no uncovertebral joint osteoarth ritis. There is severe bilateral facet joint osteoarthritis. There is mild right neural foraminal elida nosis. There is no central canal stenosis. C3-C4: The disc is bulging. There is severe bilateral uncovertebral joint osteoarthritis. There is se malathi bilateral facet joint osteoarthritis. There is mild right and moderate left neural foraminal elida nosis. There is mild central canal stenosis with ventral indentation of the spinal cord. C4-C5: The disc is bulging. There is severe bilateral uncovertebral joint osteoarthritis. There is mi ld right and severe left facet joint osteoarthritis. There is mild right and moderate left neural for aminal stenosis. There is moderate central canal stenosis with ventral and dorsal indentation of the spinal cord. C5-C6: The disc is bulging. There is severe bilateral uncovertebral joint osteoarthritis. There is mo derate bilateral facet joint osteoarthritis. There is moderate bilateral neural foraminal stenosis. T here is moderate central canal stenosis with ventral and dorsal indentation of the spinal cord. C6-C7: The disc is bulging. There is moderate right and severe left uncovertebral joint osteoarthriti s. There is mild bilateral facet joint osteoarthritis. There is mild bilateral neural foraminal steno sis. There is mild central canal stenosis. C7-T1: The disc is bulging. There is mild bilateral uncovertebral joint osteoarthritis. There is davey re bilateral facet joint osteoarthritis. There is mild bilateral neural foraminal stenosis. There is mild central canal stenosis. IMPRESSION: 1. Severe cervical spondylosis. Reviewed, dictated and finalized at location A.
--- NOTE | ~2022-10-10 | MR_ITS ---
EXAMINATION: MR lumbar spine wo con DATE: 10/10/2022 14:18 INDICATION: Degenerative disc disease. TECHNIQUE: Magnetic resonance imaging (MRI) of the lumbar spine was performed without intravenous con trast. Sequences included sagittal T2-weighted FSE, sagittal T2-weighted FS FSE, sagittal T1-weighted FSE, and axial T2-weighted FSE. COMPARISON: None FINDINGS: There is 5 degrees levocurvature of lumbar spine. There is 3 mm anterolisthesis of L5 on S1 . Vertebral body heights are normal. There is mildly decreased disc height at L4-L5 and moderately de creased disc height at L5-S1. The distal spinal cord signal intensity is normal. The conus medullaris is at L1. The following disc levels are specifically discussed: L1-L2: The disc does not extend beyond the endplate margin. There is mild bilateral facet joint osteo arthritis. There is no neural foraminal stenosis. There is no central canal stenosis. L2-L3: The disc is mildly bulging. There is mild bilateral facet joint osteoarthritis. There is mild bilateral neural foraminal stenosis. There is no central canal stenosis. L3-L4: The disc is mildly bulging. There is moderate bilateral facet joint osteoarthritis. There is m ild bilateral neural foraminal stenosis. There is no central canal stenosis. L4-L5: The disc is bulging with superimposed central extrusion. There is severe bilateral facet joint osteoarthritis. There is mild bilateral neural foraminal stenosis. There is moderate central canal s tenosis. L5-S1: The disc is bulging. There is severe bilateral facet joint osteoarthritis. There is mild bilat eral neural foraminal stenosis. There is no central canal stenosis. IMPRESSION: 1. Moderate lumbar spondylosis. Reviewed, dictated and finalized at location A.
== END ==
PROVIDERS: PCP Internal Medicine; Visit Provider Orthopaedic Surgery
DX: M43.06 Spondylolysis, lumbar region (principal); M43.02 Spondylolysis, cervical region
CPT/HCPCS: 72141; 72148

== ENCOUNTER 2022-11-14 13:18 | Outpatient (CLI) | payer MEDICARE, SELFPAY ==
--- NOTE | ~2022-11-14 | XR_ITS ---
EXAMINATION: XR sacrum coccyx min 2V DATE: 11/14/2022 13:41 INDICATION: Unspecified fall, initial encounter. TECHNIQUE: 3 views of the sacrum and coccyx were obtained. COMPARISON: None. FINDINGS: There is 3 mm anterolisthesis of L5 on S1. No fracture. Osteitis pubis is noted. There is m ild osteoarthritis of the sacroiliac joints. There is moderate lumbar spondylosis. IMPRESSION: 1. No fracture. 2. Moderate lumbar spondylosis. Reviewed, dictated and finalized at location E.
== END 2022-11-14 13:19 | disposition home or self-care (01) ==
PROVIDERS: PCP Internal Medicine; Visit Provider Internal Medicine
DX: M43.06 Spondylolysis, lumbar region (principal)
CPT/HCPCS: 72220

== ENCOUNTER 2023-01-14 07:18 | Outpatient (CLI) | payer MEDICARE, SELFPAY ==
--- NOTE | ~2023-01-14 | MR_ITS ---
MRI of the brain Clinical History: Leg weakness Technique: Axial and sagittal T1-weighted images were acquired. These were followed by axial T2-weigh lazaro, diffusion weighted, gradient, and FLAIR images. Following intravenous administration of 13 cc Mu ltiHance gadolinium, T1-weighted fat-sat imaging was performed in the axial and coronal planes. Findings: No abnormal signal seen in the brain parenchyma. No acute infarct, intracranial hemorrhage, or mass lesion. Ventricles and subarachnoid spaces are unremarkable. Orbits are unremarkable. Paranasal sinuses and l eft mastoid muscles are clear. There is minimal fluid in right mastoid air cells. Major intracranial flow voids are intact. Sagittal midline structures are intact. No abnormal postcontrast enhancement identified. IMPRESSION: Unremarkable exam. Reviewed, dictated and finalized at location . STMENTS MANAGER IMPRESSION: Unremarkable exam.
== END 2023-01-14 07:19 | disposition home or self-care (01) ==
PROVIDERS: PCP Internal Medicine; Visit Provider Physician Assistant
DX: R29.898 Other symptoms and signs involving the musculoskeletal system (principal)
CPT/HCPCS: 70553; A9577

== ENCOUNTER 2023-02-07 08:21 | Outpatient (CLI) | payer MEDICARE, SELFPAY ==
--- NOTE | 2023-02-07 11:00 | NEURO_ITS ---
Impression: # Diabetic complains of gait dysfunction and dizziness. # Normal Nerve Conduction Study of upper extremities. 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 # Left posterior tibial nerve has more function. # Needle/EMG exam is neurogenic. Nerve Conduction Studies Anti Sensory Summary Table Stim Site NR Peak (ms) P-T Amp (?V) Site1 Site2 Delta-P (ms) Dist (cm) Jessee (m/s) Left Median Anti Sensory (2-3nd Digit) Wrist 2.3 75.1 Wrist 2-3nd Digit 2.3 14.0 61 Wrist 2.4 61.5 Wrist 2-3nd Digit 2.3 14.0 61 Right Median Anti Sensory (2-3nd Digit) Wrist 2.6 41.0 Wrist 2-3nd Digit 2.6 14.0 54 Wrist 2.3 46.9 Wrist 2-3nd Digit 2.6 14.0 54 Left Radial Anti Sensory (Base 1st Digit) Wrist 1.8 38.0 Wrist Base 1st Digit 1.8 0.0 Right Radial Anti Sensory (Base 1st Digit) Wrist 1.9 34.1 Wrist Base 1st Digit 1.9 0.0 Left Saphenous Anti Sensory (Ant Med Mall) 14cm 3.9 28.0 14cm Ant Med Mall 3.9 0.0 Right Saphenous Anti Sensory (Ant Med Mall) 14cm 4.2 5.1 14cm Ant Med Mall 4.2 16.0 38 Left Sup Fibular Anti Sensory (Ant Lat Mall) 14 cm 4.3 8.9 14 cm Ant Lat Mall 4.3 16.0 37 Right Sup Fibular Anti Sensory (Ant Lat Mall) 14 cm 3.8 14.5 14 cm Ant Lat Mall 3.8 16.0 42 Left Sural Anti Sensory (Lat Mall) Calf 3.7 7.4 Calf Lat Mall 3.7 16.0 43 Right Sural Anti Sensory (Lat Mall) Calf 4.5 8.8 Calf Lat Mall 4.5 16.0 36 Left Ulnar Anti Sensory (5th Digit) Wrist 2.5 43.9 Wrist 5th Digit 2.5 14.0 56 Right Ulnar Anti Sensory (5th Digit) Wrist 2.3 58.2 Wrist 5th Digit 2.3 14.0 61 Motor Summary Table Stim Site NR Onset (ms) O-P Amp (mV) Site1 Site2 Delta-0 (ms) Dist (cm) Jessee (m/s) Left Median Motor (Abd Poll Brev) Wrist 2.7 5.5 Elbow Wrist 4.2 26.0 62 Elbow 6.9 3.4 Right Median Motor (Abd Poll Brev) Wrist 2.5 5.6 Elbow Wrist 4.3 26.0 60 Elbow 6.8 3.9 Left Peroneal Motor (Vastus Med) NO RESPONSE Ankle NR Popit Ankle 0.0 Popit NR Right Peroneal Motor (Vastus Med) NO RESPONSE Ankle NR Popit Ankle 0.0 Popit NR Left Tibial Motor (Abd Elias Brev) Ankle 5.4 0.3 Knee Ankle 9.5 39.0 41 Knee 14.9 0.3 Right Tibial Motor (Abd Elias Brev) NO RESPONSE Ankle NR Knee NR Left Ulnar Motor (Abd Dig Minimi) Wrist 2.3 2.2 A Elbow Wrist 4.9 29.0 59 A Elbow 7.2 1.1 Right Ulnar Motor (Abd Dig Minimi) Wrist 2.0 2.1 A Elbow Wrist 5.1 29.0 57 A Elbow 7.1 1.3 F Wave Studies NR F-Lat (ms) L-R F-Lat (ms) Left Median (Mrkrs) (Abd Poll Brev) 25.35 0.43 Right Median (Mrkrs) (Abd Poll Brev) 25.78 0.43 Left Peroneal (Mrkrs) (EDB) NO RESPONSE NR Right Peroneal (Mrkrs) (EDB) NO RESPONSE NR Left Tibial (Mrkrs) (Abd Hallucis) 56.02 1.52 Right Tibial (Mrkrs) (Abd Hallucis) 54.50 1.52 Left Ulnar (Mrkrs) (Abd Dig Min) 27.38 1.35 Right Ulnar (Mrkrs) (Abd Dig Min) 26.04 1.35 EMG Side Muscle Nerve Root Ins Act Fibs Amp Dur Recrt Comment Right 1stDorInt Ulnar C8-T1 Nml Nml Nml Nml Nml Right Ext Indicis Radial (Post Int) C7-8 Nml Nml Nml Nml Nml Right Ext Dig
== END 2023-02-07 08:22 | disposition home or self-care (01) ==
PROVIDERS: PCP Internal Medicine; Visit Provider Physician Assistant
DX: R53.1 Weakness (principal); G62.9 Polyneuropathy, unspecified
CPT/HCPCS: 95886; 95913

== ENCOUNTER 2023-03-12 13:31 | Outpatient (CLI) | payer MEDICARE, SELFPAY ==
--- NOTE | 2023-03-12 13:45 | ECHO_ITS ---
Patient Info Name: Brina Paul Age: 77 years : 1945 Gender: Female Ht: 61 in Wt: 145 lbs BSA: 1.70 m2 HR: 65 bpm BP: 141 / 83 mmHg Technical Quality: Good Exam Date: 03/12/2023 2:00 PM Exam Location: Echo Lab Patient Status: Outpatient Admit Date: 03/12/2023 Staff Ordering Physician: Lopez Lawrence MD Instrument Shop Supervisor: Valerie Arredondo RDCS Attending Provider: Lopez Lawrence MD Referring Physician: Howard DE LA CRUZ; Exam Type: CA echo doppler color flow Study Info Indications R01.1 - Cardiac murmur, unspecified Complete two-dimensional, color flow and Doppler transthoracic echocardiogram is performed. Summary 1. Complete two-dimensional, color flow and Doppler transthoracic echocardiogram is performed. 2. Left ventricular chamber dimension is normal. 3. Left ventricular systolic function is normal, estimated at 60-65%. 4. The left ventricular diastolic function is grade I diastolic dysfunction. 5. E/e' 12 is mildly elevated. 6. There is mild aortic valve sclerosis. 7. No pulmonary hypertension, estimated pulmonary arterial systolic pressure is 27 mmHg. Left Ventricle E/e' 12 is mildly elevated. Left ventricular chamber dimension is normal. Left ventricular systolic function is normal, estimated at 60-65%. The left ventricular diastolic function is grade I diastolic dysfunction. Right Ventricle Right ventricular systolic function is normal and with normal TAPSE 2.2 cm. Right ventricular chamber dimension is normal. Left Atria Left atrial chamber dimension is normal. Right Atria Right atrial chamber dimension is normal. Aortic Valve The aortic valve is trileaflet. There is mild aortic valve sclerosis. There is no aortic valve stenosis. There is no aortic valve regurgitation. Pulmonic Valve There is no pulmonic regurgitation. Mitral Valve There is no mitral valve stenosis. There is no mitral valve regurgitation. Tricuspid Valve There is no tricuspid valve regurgitation. No pulmonary hypertension, estimated pulmonary arterial systolic pressure is 27 mmHg. Pericardium/Pleural There is no pericardial effusion. Inferior Vena Cava Normal inferior vena cava with >50% collapse upon inspiration consistent with normal right atrial pressure, 5 mmHg. Aorta The aortic root size at the sinus of Valsalva is normal. Left Ventricular Outflow Tract Name Value Normal LVOT 2D LVOT Diameter 1.9 cm LVOT Doppler LVOT Peak Gradient 4 mmHg LVOT Mean Gradient 2 mmHg LVOT VTI 20 cm LVOT VTI/AV VTI Ratio 0.8 LVOT Stroke Volume 54 ml LVOT CO 3.5 l/min LVOT CI 2.1 l/min/m2 Pulmonic Valve Name Value Normal RVOT Doppler RVOT Peak Gradient 2 mmHg PV Doppler
== END 2023-03-12 13:32 | disposition home or self-care (01) ==
PROVIDERS: PCP Internal Medicine; Visit Provider Internal Medicine
DX: I35.8 Other nonrheumatic aortic valve disorders (principal); R93.1 Abnormal findings on diagnostic imaging of heart and coronary circulation
CPT/HCPCS: 93306

== ENCOUNTER 2023-05-01 09:29 | Outpatient (CLI) | payer MEDICARE, SELFPAY ==
--- NOTE | 2023-05-01 10:05 | ECG_ITS ---
Measurements Intervals [place] Rate: 68 P: 61 VT: 181 QRS: 24 QRSD: 87 T: 39 QT: 382 QTc: 407 Interpretive Statements SINUS RHYTHM BASELINE ARTIFACT- V1-V2 NORMAL ECG COMPARED TO ECG 10/11/2020 04:40:49 NO SIGNIFICANT CHANGES Electronically Signed On 05-01-2023 10:18:57 CDT by Kali Guaman D.O.
[2023-05-01 10:43] LABS: Anion Gap 5 mmol/L (8-16); Blood Urea Nitrogen 13 mg/dL (7-17); Carbon Dioxide 28 mmol/L (22-30); Chloride 104 mmol/L (98-107); Estimated Glomerular Filt Rate > 60; Glucose 127 mg/dL (65-110); Sodium 137 mmol/L (137-145)
== END 2023-05-01 09:30 | disposition home or self-care (01) ==
PROVIDERS: PCP Internal Medicine; Visit Provider Anesthesiology
DX: Z01.818 Encounter for other preprocedural examination (principal); E11.9 Type 2 diabetes mellitus without complications; I10 Essential (primary) hypertension
CPT/HCPCS: 36415; 80048; 93005

== ENCOUNTER 2023-05-17 08:01 | Day surgery (SDC) | payer MEDICARE, SELFPAY ==
--- NOTE | 2023-05-17 07:13 | PM.HPGS ---
History of Present Illness History of Present Illness Chief complaint: LT Carpal Tunnel, LT Ulnar Nerve Entrapment Narrative: Patient seen and examined in pre-operative holding area. No interval change in medical history or symptoms. Patient recalls previous discussion of benefits and alternatives to procedure. Continues to desire to proceed with left endoscopic possible open carpal tunnel release and left cubital tunnel release . Reviewed procedure, post-op expectations and risks including but not limited to bleeding, infection, injury to tendon/nerve/vessel, decreased hand function, stiffness, RSD, no change or worsening of symptoms. I discussed the possible use of assistants and their participation in the case. Patient stated understanding and signed the consent form wishing to proceed. Review of Systems Review of Systems: All systems reviewed & are unremarkable except as noted in HPI and below PMFSH Past Medical History Medical History Arthritis of right shoulder region Benign essential hypertension BMI 26.0-26.9,adult BMI 27.0-27.9,adult BPPV (benign paroxysmal positional vertigo) Breast cancer screening Colon cancer screening Cricopharyngeus muscle dysfunction DJD (degenerative joint disease), multiple sites DM2 (diabetes mellitus, type 2) A1C=7 (02/26/19) Dysphagia Elevated blood pressure reading without diagnosis of hypertension Encounter for Medicare annual wellness exam Encounter for routine adult health examination with abnormal findings Encounter for surgical aftercare following surgery on the digestive system Gastric polyps GERD (gastroesophageal reflux disease) GERD (gastroesophageal reflux disease) GERD with esophagitis Hx of colonic polyps Hypercholesteremia Injury of toe Oropharyngeal dysphagia Orthopedic aftercare Osteoporosis Right knee pain Right shoulder pain Rotator cuff arthropathy of right shoulder Schatzki's ring Urticaria Vertigo Surgical History Surgical History History of ankle surgery Right ORIF -2012 History of arthroscopy of right shoulder (~01/25/12) History of epicondylectomy Bilateral 2004 History of lumpectomy of both breasts 1985 History of meniscectomy of right knee (~10/20/21) Partial medial meniscectomy History of partial hysterectomy History of tonsillectomy Hx laparoscopic cholecystectomy 10/11/20 Hx of repair of rotator cuff Bilateral 2004 S/P cholecystectomy Status post arthroscopy of right knee Status post reverse total arthroplasty of right shoulder (~09/30/19) Family History Family History Father Family history of osteoarthritis Sibling Family history of diabetes mellitus in first degree relative Diabetes mellitus Cancer Mother Acute myocardial infarction Hypertension Heart disease Social History Social History Social History: Patient lives at home with Fam, and son. She wishes Fam to be her surrogate MDM. She is listed as a FC. PCP is Dr. Lawrence whom she follows up with regularly Smoking status: Never smoker Second hand tobacco smoke exposure: No Alcohol intake: never Substance use: never Substance use type: does not use Do You Feel Safe in your Home?: Yes Lack of Transportation: No Lack of Food: Never True Current Housing: I Have Housing Concerned About Future Housing: No Difficulty Paying Gas/Electric Bills: No Difficulty Paying for Meds: No Currently Unemployed: No Education: High School Diploma/GED Difficulty w/ Childcare or Family Care: No Living arrangements: with family Additional living arrangements comments: - Fam Occupation/Education: retired Spiritual care concerns: No Meds Home Medications and Allergies Home Medications Medication Instructions Rec
--- NOTE | 2023-05-17 07:14 | P.OP_ITS ---
Procedure Note - Detailed Date of Procedure 05/17/23 Pre-op Diagnosis left cubital and carpal tunnel syndrome Post-op Diagnosis Same Procedure Performed left ectr and CuTR Surgeon Avery Hargrove MD [employer] Kassandra Baldwin PA-C Anesthesia MAC Description of Procedure INFORMED CONSENT: The patient was seen and examined and marked in the pre-op area.? The patient signed the consent form. PROCEDURE IN DETAIL:The patient taken back to OR on the stretcher in supine position. Time out performed with anesthesia, surgeon and staff agreeing on patient's name site and surgery to be performed SCDs were placed on the lower extremities and inflated. A tourniquet was placed on {left} upper extremity and antibiotics given IV After anesthesia administered sedation I injected {10}cc 1%lido with epi and 0.5% marcaine plain at the operative sites The?{left upper extremity}?was prepped and draped in sterile fashion the??{left upper extremity} was? exsanguinated with Esmarch bandage and tourniquet inflated to 250mmHg I made a transverse incision in the {left} volar distal wrist crease through skin and dermis with 15 blade scalpel.? Littler scissors spread down to antebrachial fascia. A small incision was made in antebrachial fascia allowing access to Carpal tunnel. I proceeded with sequential dilation staying in line with the ring finger and hugging the hook of the hamate.? I then used the synovial elevator to free any adhesions from the underside of the transverse carpal ligament. Next I was able to insert the Microaire endoscopic carpal tunnel device with direct visualization of the transverse fibers on the monitor and proceeded with complete segmental retrograde release of the ligament in its entirety.? I irrigated with normal saline and closed with 4-0 monocryl for dermis and subcuticular closure. I next proceeded with making a longitudinal incision between two heads for flexor carpi ulnaris at end of {left} cubital tunnel with 15 blade scalpel.? Littler scissors were used to spread down to FCU fascia.? An incision was made in FCU fascia and ulnar nerve identified exiting cubital tunnel.? I proceeded with complete retrograde release of the cubital tunnel including 7cm proximal for the intermuscular septum.? The nerve appeared very atrophic and white in bran earnce with tiny vaso nervorum.? I performed small epineurolysis and visualized internal fascicles but no clear points of constriction were found. There was no subluxation on full elbow range of motion. ? I irrigated with normal saline and closure with 3-0 vicryl for dermis and 4-0 monocryl for subcuticular. A dressing of Dermabond, 4x4, randa, and a volar wrist and posterior elbow splint was applied for patient safety, security, and comfort and secured with an john bandage after the tourniquet was let down noting the hand was warm and well perfused. The patient was then awaken from anesthesia and transferred to the recovery room in stable condition.? Complications - none EBL- 0cc Disposition - home in stable conditions Kassandra Baldwin PA-C was essential for positioning, retraction, closure and dressing placement [facility] Billing Surgery - Charge Forward: Surgery Billing ([id number] for kassandra)
[2023-05-17 08:43] VITALS: BP 134/67; PULSE 70; RESP 16; TEMP 37.4; O2SAT 98
--- NOTE | 2023-05-17 09:00 | WPDANESEPPF ---
Anes - Initial Pre Proc Eval Procedure: Operation Date: 05/17/23 09:45 Proposed Procedures p Left Endoscopic Carpal Tunnel Release, Possible Open Carpal Tunnel Release - Avery Hargrove MD s Left Cubital Tunnel Release - Avery Hargrove MD Date/Time: 05/17/23 09:00 Surgeon: Avery Hargrove MD Pre Op Diagnosis: LT Carpal Tunnel, LT Ulnar Nerve Entrapment Patient Data Age: 77 Gender: F Height: 1.55 m Weight: 64.35 kg Last Vital Signs Temp 37.4 C 05/17/23 08:43 Pulse 70 05/17/23 08:43 Resp 16 05/17/23 08:43 BP 134/67 05/17/23 08:43 Pulse Ox 98 05/17/23 08:43 O2 Del Method Room Air 05/17/23 08:43 Allergies Allergy/AdvReac Type Severity Reaction Status Date / Time iohexol Allergy Severe Anaphylaxis Verified 05/17/23 08:38 [From contrast - CT, X-RAY] shellfish derived Allergy Severe Anaphylaxis Verified 05/17/23 08:38 Kmwkhgp-[id number]-QvP Reductase Allergy Severe Diarrhea Verified 05/17/23 08:38 Inhibitor [Frflajy-Wox-Oze Reductase Inhibitor] chlorhexidine Allergy Intermediate Itching Verified 05/17/23 08:38 iodine Allergy Mild Blister Verified 05/17/23 08:38 hydrocodone [From Vicodin] AdvReac Dizziness Verified 05/17/23 08:38 Home Medications Medication Instructions Recorded Confirmed Type calcium carbonate 500 mg calcium 500 mg PO DAILY 07/12/20 05/17/23 History (1,250 mg) chewable tablet (Calcium 500) multivitamin 1 tablet PO DAILY 07/12/20 05/17/23 History cyanocobalamin (vitamin B-12) 5,000 mcg PO QAM 10/14/21 05/17/23 History 5,000 mcg capsule ibuprofen 200 mg capsule 400 mg PO Q6H PRN Pain 10/14/21 05/17/23 History hydrochlorothiazide 12.5 mg tablet 12.5 mg PO .Every other day PRN 10/25/22 05/17/23 Rx swelling #15 tabs [address] Wheel Rollator #1 ea 04/11/23 Rx ezetimibe 10 mg tablet (Zetia) 10 mg PO DAILY #90 tabs 04/16/23 05/17/23 Rx olmesartan 5 mg tablet See Rx Instructions .Route 04/16/23 05/17/23 Rx .COMPLEX #180 tabs esomeprazole magnesium 40 mg See Rx Instructions .Route 04/27/23 05/17/23 Rx capsule,delayed release .COMPLEX #180 caps sitagliptin phosphate 100 mg See Rx Instructions .Route 04/27/23 05/17/23 Rx tablet (Januvia) .COMPLEX #90 tabs alirocumab 75 mg/mL subcutaneous See Rx Instructions .Route 04/30/23 05/17/23 Rx pen injector (Praluent Pen) .COMPLEX #2 mL tramadol 50 mg tablet 50 mg PO Q6H PRN pain #8 tabs 05/17/23 Rx Patient hx anesthesia problems: none Family hx anesthesia problems: none Results Review: All pre-operative results and documents have been reviewed as part of the pre-operative evaluation. FORMERLY [facility], 1928–1983 Past Medical History Medical History Arthritis of right shoulder region Benign essential hypertension BMI 26.0-26.9,adult BMI 27.0-27.9,adult BPPV (benign paroxysmal positional vertigo) Breast cancer screening Colon cancer screening Cricopharyngeus muscle dysfunction DJD (degenerative joint disease), multiple sites DM2 (diabetes mellitus, type 2) A1C=7 (02/26/19) Dysphagia Elevated blood pressure reading without diagnosis of hypertension Encounter for Medicare annual wellness exam Encounter for routine adult health examination with abnormal findings Encounter for surgical aftercare following surgery on the digestive system Gastric polyps GERD (gastroesophageal reflux disease) GERD (gastroesophageal reflux disease) GERD with esophagitis Hx of colonic polyps Hypercholesteremia Injury of toe Oropharyngeal dysphagia Orthopedic aftercare Osteoporosis Right knee pain Right shoulder pain Rotator cuff arthropathy of right shoulder Schatzki's ring Urticaria Vertigo Surgical History Surgical History History of ankle surgery Right ORIF -2012 History of arthroscopy of right shoulder (~01/25/12) History of epicondylectomy Bilateral 2004 History of lumpectomy of both breasts 1985
[2023-05-17 09:09] LABS: Glucose Point of Care 127 mg/dl (65-105)
[2023-05-17] MEDS: ceFAZolin SODIUM 2 GM/20 ML SW SYRINGE IV PUSH (09:49)
[2023-05-17] MEDS: LACTATED RINGERS 1,000 ML 30 ML IV CONT (09:50)
[2023-05-17] MEDS: LIDO 1%/EPINEPHRINE 1:100,000 20 ML VIAL 5 ML INFILTRATE (10:00)
[2023-05-17 10:28] VITALS: BP 150/61; PULSE 82; RESP 16; O2SAT 95
[2023-05-17 10:38] VITALS: BP 145/68; PULSE 71; RESP 16; O2SAT 94
[2023-05-17 10:48] VITALS: BP 145/66; PULSE 69; RESP 18; O2SAT 95
--- NOTE | 2023-05-17 11:01 | WPDANESPN ---
Anes - Prog Note Post-Op Date/Time: 05/17/23 11:01 Cardiovascular status: normal Respiratory status: normal Airway patency: baseline Mental status: baseline Post-Op hydration status: normal Vital Signs: Last Vital Signs Temp 37.4 C 05/17/23 08:43 Pulse 69 05/17/23 10:48 Resp 18 05/17/23 10:48 BP 145/66 H 05/17/23 10:48 Pulse Ox 95 05/17/23 10:48 O2 Del Method Room Air 05/17/23 10:48 Pain Score (VAS): 0/10 I/O: Intake & Output 05/16/23 05/17/23 05/17/23 23:59 07:59 15:59 Intake Total 150 Balance 150 05/17/23 09:04 POC Capillary Glucose 127 H Patient Feedback: Patient satisfied with anesthetic care.
== END 2023-05-17 11:09 | disposition home or self-care (01) ==
PROVIDERS: PCP Internal Medicine; Visit Provider Plastic Surgery
PROC: 01N54ZZ Release Median Nerve, Percutaneous Endoscopic Approach (ICD-10-PCS; CPT 29848; principal; 2023-05-17 09:45)
PROC: (CPT 64718; 2023-05-17 09:45)
DX: G56.02 Carpal tunnel syndrome, left upper limb (principal); G56.22 Lesion of ulnar nerve, left upper limb
CPT/HCPCS: 29848; 64718

== ENCOUNTER 2023-06-26 19:12 | Emergency (ER) | payer MEDICARE, SELFPAY ==
--- NOTE | ~2023-06-26 | CT_ITS ---
EXAMINATION: CT cervical spine wo con DATE: 06/26/2023 20:32 INDICATION: fall, hi TECHNIQUE: Computed tomography (CT) of the cervical spine was performed without intravenous contrast. Automated exposure control and iterative reconstruction technique were employed. The dose-length pro duct was 681.00 mGy-cm. COMPARISON: MR C-spine 10/10/2022. FINDINGS: Vertebral Body Alignment: Intact. Craniocervical and atlantoaxial alignment: Moderate degenerative change. Alignment intact. Osseous structures/fracture: No evidence of a lytic or blastic process in the visualized spine. No e vidence of acute fracture. Cervical soft tissues: The paraspinal soft tissues planes are maintained. Degenerative changes: Multilevel severe degenerative disc disease and moderate facet arthropathy. Sev ere left neural foraminal narrowing at C3-4 and C5-6. No severe central canal narrowing. IMPRESSION: No acute fracture or traumatic malalignment in the cervical spine. Reviewed, dictated and finalized at location K.
--- NOTE | ~2023-06-26 | XR_ITS ---
EXAM: XR shoulder LT min 2V DATE: 06/26/2023 20:50 HISTORY: fall, pain . COMPARISON: None available. FINDINGS: Decreased mineralization. No fracture or dislocation. No lytic or blastic lesion. Incomple tely visualized right shoulder arthroplasty hardware. Mild AC joint and moderate glenohumeral joint d egenerative change. No erosion or periosteal change. Soft tissues within normal limits. IMPRESSION: No acute osseous finding in the left shoulder. Reviewed, dictated and finalized at location K.
--- NOTE | ~2023-06-26 | CT_ITS ---
EXAMINATION: CT brain wo con DATE: 06/26/2023 20:32 INDICATION: fall, HI . TECHNIQUE: Computed tomography (CT) of the head was performed without intravenous contrast. The mA wa s adjusted according to patient size. Iterative reconstruction technique was employed. The dose-lengt h product was 681.00 mGy-cm. COMPARISON: MR brain 01/14/2023. FINDINGS: No acute intracranial hemorrhage or extra-axial fluid collection. No hydrocephalus, mass, or herniation. No acute ischemic infarct. Unremarkable dural venous sinus attenuation. No acute osseous abnormality. Right posterior scalp contusion/laceration. Minimal right mastoid fluid, the remaining aerated spaces are clear. Mild atrophy and chronic white matter change. Atherosclerotic intracranial calcification. Bilateral l ens replacements. IMPRESSION: No acute intracranial process. Reviewed, dictated and finalized at location K.
[2023-06-26 19:14] VITALS: BP 134/53; PULSE 75; RESP 15; TEMP 36.6; O2SAT 100
--- NOTE | 2023-06-26 19:51 | PC.NURSE ---
Pt placed in c-collar by this RN upon assessment in room. pt c/o head, neck, and R shoulder pain.
--- NOTE | 2023-06-26 20:56 | ED.FALL ---
HPI - Fall General Chief Complaint: Fall Stated Complaint: fall, head injury Time Seen by Provider: 06/26/23 19:37 Source: patient Mode of arrival: ambulatory Limitations: no limitations History of Present Illness HPI Narrative: Patient is a 77-year-old female who presents the ED with report of a fall. Patient reports she was walking with her walker today when her left knee gave out on her, causing her to fall. She notes a frequent history of this related to her neuropathy and left-sided drop foot. She fell backwards and hit her posterior head on the ground. Denies LOC. She did sustain a laceration to her posterior scalp. Complains of pain to her head, left-sided neck, left posterior shoulder. Denies numbness or tingling. Denies back pain. Denies dizziness, lightheadedness, nausea, vision changes. Denies chest pain or shortness of breath. Related Data Home Medications Medication Instructions Recorded Confirmed calcium carbonate (Calcium 500) 500 mg PO DAILY 07/12/20 05/17/23 multivitamin 1 tablet PO DAILY 07/12/20 05/17/23 cyanocobalamin (vitamin B-12) 5,000 mcg PO QAM 10/14/21 05/17/23 5,000 mcg capsule ibuprofen 200 mg capsule 400 mg PO Q6H PRN Pain 10/14/21 05/17/23 Allergies Allergy/AdvReac Type Severity Reaction Status Date / Time iodine Allergy Severe Anaphylaxis Verified 06/05/23 08:44 iohexol Allergy Severe Anaphylaxis Verified 05/31/23 13:14 [From contrast - CT, X-RAY] shellfish derived Allergy Severe Anaphylaxis Verified 05/31/23 13:14 Szlerlw-USU-SrB Reductase Allergy Severe Diarrhea Verified 05/31/23 13:14 Inhibitor [Uxqingp-Wkk-Gxy Reductase Inhibitor] chlorhexidine Allergy Intermediate Itching Verified 05/31/23 13:14 hydrocodone [From Vicodin] AdvReac Dizziness Verified 05/31/23 13:14 Review of Systems Review of Systems: CONSTITUTIONAL: Denies fever, chills, or sweats. ENT: Denies vision changes. CARDIOVASCULAR: Denies chest pain. RESPIRATORY: Denies dyspnea. GASTROINTESTINAL: Denies abdominal pain, nausea, vomiting. MUSCULOSKELETAL: See HPI NEUROLOGIC: See HPI. All systems reviewed & are unremarkable except as noted in HPI and below PMFSH Past Medical History Medical History Arthritis of right shoulder region Benign essential hypertension BMI 26.0-26.9,adult BMI 27.0-27.9,adult BPPV (benign paroxysmal positional vertigo) Breast cancer screening Colon cancer screening Cricopharyngeus muscle dysfunction DJD (degenerative joint disease), multiple sites DM2 (diabetes mellitus, type 2) A1C=7 (02/26/19) Dysphagia Elevated blood pressure reading without diagnosis of hypertension Encounter for Medicare annual wellness exam Encounter for routine adult health examination with abnormal findings Encounter for surgical aftercare following surgery on the digestive system Gastric polyps GERD (gastroesophageal reflux disease) GERD (gastroesophageal reflux disease) GERD with esophagitis Hx of colonic polyps Hypercholesteremia Injury of toe Oropharyngeal dysphagia Orthopedic aftercare Osteoporosis Right knee pain Right shoulder pain Rotator cuff arthropathy of right shoulder Schatzki's ring Urticaria Vertigo Surgical History Surgical History History of ankle surgery Right ORIF -2012 History of arthroscopy of right shoulder (~01/25/12) History of epicondylectomy Bilateral 2004 History of lumpectomy of both breasts 1985 History of meniscectomy of right knee (~10/20/21) Partial medial meniscectomy History of partial hysterectomy History of tonsillectomy Hx laparoscopic cholecystectomy 10/11/20 Hx of repair of rotator cuff Bilateral 2004 S/P cholecystectomy Status post arthroscopy of right knee Status post reverse total arthroplasty of right shoulder (~09/30/19) Family History Family History (Reviewed 06/26/23 @ 21:00 by Charley Clark
[2023-06-26] MEDS: TETANUS,DIPHTHERIA,AC PERTUSSIS ADULT (0.5 ML) BOOSTRIX IM (21:16)
[2023-06-26] MEDS: LIDOCAINE, EPINEPHRINE, TETRACAINE VISCOUS SOLN 3 ML TOPICAL (21:42)
[2023-06-26] MEDS: HYDROcodone/acetaminophen (*CRX) 5-325 MG TABLET 1 TAB PO (21:43)
[2023-06-26 22:50] VITALS: BP 162/74; PULSE 67; RESP 17; O2SAT 99
== END 2023-06-26 23:00 | disposition home or self-care (01) ==
PROVIDERS: Emergency Provider Physician Assistant; PCP Internal Medicine
DX: S01.01XA Laceration without foreign body of scalp, initial encounter (principal); S46.912A Strain of unspecified muscle, fascia and tendon at shoulder and upper arm level, left arm, initial encounter; M19.90 Unspecified osteoarthritis, unspecified site; I10 Essential (primary) hypertension; E11.9 Type 2 diabetes mellitus without complications; K21.9 Gastro-esophageal reflux disease without esophagitis; M21.372 Foot drop, left foot; W18.30XA Fall on same level, unspecified, initial encounter; Z23 Encounter for immunization
CPT/HCPCS: 12001; 70450; 72125; 73030; 90471; 90715; 99284; A4565; A9270; L0140

== ENCOUNTER 2023-07-10 10:00 | Outpatient (RCR) | payer MEDICARE, SELFPAY ==
--- NOTE | 2023-06-11 10:27 | OTOPEVAL1 ---
Assessment and note entered by Rolo Brice, OTR/L, CHT Evaluation Information Assessment Status Evaluation Diagnosis (L) carpal tunnel syndrome, (L) lesion of ulnar nerve Subjective Information Patient is s/p left carpal tunnel release and left cubital tunnel release 05/17/23. Patient reports doing well after surgery, however developed pain after trying to squeeze a stress ball. At rest she is reporting 8/10 pain. Reports 10/10 pain at night affecting her sleep. She is right handed and retired. 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 She would like to be able to use her rollator again, at this time she is unable to lock the brake with the left hand. Reported Pain Level Pain Score 8: Self Report Assessment OT Clinical Summary Patient referred to OT s/p left carpal and cubital tunnel release. She presents with gross weakness in the median and ulnar nerve distribution of the hand. She has intact sensation, as measured by the [place] monofilament test. 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 Skilled OT indicated for use of modalities for pain control, functional therapeutic exercises and activities, as well as HEP instruction and progression to facilitate optimal functional use of the left hand for ADLs and walker use. Plan of Care Interventions Therapeutic Exercise,Manual Therapy,Therapeutic Activities,Hot Pack/Cold Pack,Paraffin OT Services Indicated Yes Treatment Frequency and 2x/week for 8 visits Duration These treatments will address the objective and functional deficits as defined above. The patient will be advanced safely and appropriately in order for the patient to progress towards his/her prior level of function. Additional exercises will be introduced and as well as a comprehensive home exercise program upon discharge, if needed, ?to ensure carryover of functional gains achieved in the clinic. This treatment plan has been reviewed and agreement upon by the patient.
--- NOTE | 2023-06-11 10:28 | OPREHPOC ---
Outpatient Therapy Plan of Care This is a Multidisciplinary Plan of Care that may contain components documented by all disciplines (PT, OT, and ST.) OT Problem 1 OT Problem #1 Knowledge Deficit OT Goal 1 Goal 1. Patient to be independent with instructed materials. Target Visit 9 OT Problem 2 OT Problem #2 Impaired Strength OT Goal 1 Goal 1. Increase left director process strength to 15 lbs. 2. Increase left gross wrist strength to 4/5. 3. Increase left finger abduction/adduction strength to 3+/5 grossly. Target Visit 9 OT Problem 3 OT Problem #3 Pain OT Goal 1 Goal 1. Patient to report reduced pain in the left hand /forearm to 4/10 at worst . Target Visit 9
--- NOTE | 2023-06-11 11:08 | PTOPEVAL1 ---
Assessment and note entered by Florin Foster, PT Evaluation Information Assessment Status Evaluation Diagnosis Weakness, knee pain, ankle pain Onset 06/2021 Subjective Information Reports that she has been diagnosed with neuropathy and left foot drop. Reports that she had multiple fall most recently 4 weeks ago. Pain is not associated with her falls she just feels that her legs are giving out on her. She is getting some achiness if she has been very active that day. Feels she is rolling her right foot out when she is walking. She has stairs all over her house and is having to pull herself up by the rail to get up. She has been using a cane in her right hand for the past 6 weeks. Reports a history of vertigo and treatments for BPPV. Reported Pain Level Pain Score 0: Self Report Pain Score 8: Self Report Assessment PT Clinical Summary Patient presents with gross LE weakness, gait instability, and balance deficits. Will benefit from skilled therapy to address deficits to improve functional mobility and stability. Needs to emphasize early strengthening as this seems to have the most direct effect on functional deficits at this time. Plan of Care Interventions Gait Training,Manual Therapy,Neuro Re-education, Therapeutic Activities,Therapeutic Exercise PT Services Indicated Yes Treatment Frequency and 2x/week for 8 visits Duration These treatments will address the objective and functional deficits as defined above. The patient will be advanced safely and appropriately in order for the patient to progress towards his/her prior level of function. Additional exercises will be introduced and as well as a comprehensive home exercise program upon discharge, if needed, ?to ensure carryover of functional gains achieved in the clinic. This treatment plan has been reviewed and agreement upon by the patient.
--- NOTE | 2023-06-11 11:08 | OPREHPOC ---
Outpatient Therapy Plan of Care This is a Multidisciplinary Plan of Care that may contain components documented by all disciplines (PT, OT, and ST.) PT Problem 1 PT Problem #1 Knowledge Deficit PT Goal 1 Goal [place] with HEP Target Visit 4 PT Problem 2 PT Problem #2 Impaired Strength PT Goal 1 Goal Improve sonia knee extension strength to 4+/5 to improve stability with transfers and ambulation Target Visit 8 PT Goal 2 Goal Improve sonia hip flexion to 4+/5 to improve foot clearance with gait and stairs Target Visit 8 PT Problem 3 PT Problem #3 Impaired Strength PT Goal 1 Goal Improve sonia hip abduction to 4/5 to improve lateral stability with gait and functional activity Target Visit 8 PT Problem 4 PT Problem #4 Impaired Balance PT Goal 1 Goal Demonstrate 9 point improvement in Tinetti score to minimize fall risk Target Visit 8 PT Goal 2 Goal Improve 2 minute walk test to 350' to improve gait speed and reduce fall risk Target Visit 8 OT Problem 1 OT Problem #1 Knowledge Deficit OT Goal 1 Goal 1. Patient to be independent with instructed materials. Target Visit 9 OT Problem 2 OT Problem #2 Impaired Strength OT Goal 1 Goal 1. Increase left director of sustainable design strength to 15 lbs. 2. Increase left gross wrist strength to 4/5. 3. Increase left finger abduction/adduction strength to 3+/5 grossly. Target Visit 9 OT Problem 3 OT Problem #3 Pain OT Goal 1 Goal 1. Patient to report reduced pain in the left hand /forearm to 4/10 at worst . Target Visit 9
--- NOTE | 2023-07-10 09:44 | OTOPDC ---
Assessment and note entered by Rolo Brice, OTR/Shahid, CHT Evaluation Information Assessment Status Progress Diagnosis (L) carpal tunnel syndrome, (L) lesion of ulnar nerve Subjective Information Patient is s/p left carpal tunnel release and left cubital tunnel release 05/17/23. Patient reporting progress with therapy, noting no longer experiencing the amounts of pain she was having before. No longer having difficulties sleeping due to pain. Reports residual paresthesia in the hand, but that this is diminishing as well . 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 She would like to be able to use her rollator again, at this time she is unable to lock the brake with the left hand. Wrist strength into flexion and ulnar deviation improved to 3+/5. Finger flexion strength continues to be severely impaired. She utilizes tenodesis to touch the finger tips to the palm. Without wrist extension, the fingers are unable to touch the palm, measuring 2-3 cm gap. Intrinsic strength ranges from 2-/5 to 1/5. Reported Pain Level Pain Score 0: Self Report Assessment OT Clinical Summary Patient referred to OT s/p left carpal and cubital tunnel release. She has made progress with reduced pain and improved wrist strength. She continues to have severe weakness distally in the hand. Reviewed her HEP and discussed that nerve healing takes time and that she has all the exercises to continue to build these muscles. She verbalizes excellent understanding. Between the exercises and the patient being active and using her hand as much as she can, strength return appears favorable. At this time we are discharging with patient independent with OT. Discussed that it may be appropriate for her to return in the future as the nerve continues to heal and her strength returns. D/C OT at this time. Plan of Care OT Services Indicated No
--- NOTE | 2023-07-10 10:38 | OPREHPOC ---
Outpatient Therapy Plan of Care This is a Multidisciplinary Plan of Care that may contain components documented by all disciplines (PT, OT, and ST.) PT Problem 1 PT Problem #1 Knowledge Deficit PT Goal 1 Goal [place] with HEP Target Visit 4 PT Goal 2 Goal 07-10-23 progress met goal continue with goal to progress HEP and education Target Visit 16 PT Problem 2 PT Problem #2 Impaired Strength PT Goal 1 Goal Improve sonia knee extension strength to 4+/5 to improve stability with transfers and ambulation Target Visit 8 Progress Not Met Comment 07-10-23 progress continue towards goal PT Goal 2 Goal Improve sonia hip flexion to 4+/5 to improve foot clearance with gait and stairs Target Visit 8 Progress Not Met Comment 07-10-23 progress not met goal- continue towards goal PT Problem 3 PT Problem #3 Impaired Strength PT Goal 1 Goal Improve sonia hip abduction to 4/5 to improve lateral stability with gait and functional activity Target Visit 8 Progress Not Met Comment 07-10-23 progress goal not met continue towards goal ADD: single leg standing without UE support x 5 seconds 1* R 2* L PT Goal 2 Target Visit 16 PT Problem 4 PT Problem #4 Impaired Balance PT Goal 1 Goal Demonstrate 9 point improvement in Tinetti score to minimize fall risk Target Visit 8 Progress Not Met Comment 07-10-23 progress goal not met
--- NOTE | 2023-07-10 10:38 | PTOPPROG ---
Assessment and note entered by Sugey Santa, PT Progress Information Assessment Status Progress Diagnosis Weakness, knee pain, ankle pain Onset 06/2021 Subjective Information feel like legs are weak and unsteady with walking; have had 2 falls since starting therapy--walking and legs give out, tend to fall backwards; one fall required bessie in back of her head; in her home uses the cane or holds onto furniture and when going out, uses the rollator with seat on it; have been doing the leg exercises at home; have not found an ankle brace yet to order; still have problems with getting up from a lower chair, stairs---have 12 at home, with one hand rail; have history of back pain and intermittent sciatica, go to chiropractor for back pain, 2x/ month; have an appointment next week with the neurologist for a follow up; want to see him and ask about more therapy or not; Assessment PT Clinical Summary Mrs. Paul has received 8 PT sessions. Compared to the initial evaluation: Tinetti balance score improved from 10 to 02/15; has had 2 falls since starting PT--with walking, legs give out and fall, tends to go backwards; gait is with a small based quad cane--decreased hip and trunk control, with increased hip and knee flexion , to clear feet, due to decreased ankle DF; 2 minute walking test distance decreased from 245' to 225'; 5 reps sit/stand test with use of 1 UE in 19 seconds; education for HEP and safety with gait. The goals were partially met. Patient has a follow up appointment with neurologist next week and she wants to discuss her status with him. And if she should continue PT or not. Recommendation to continue PT treatment. Plan of Care Interventions Gait Training,Neuro Re-education,Patient Education,Therapeutic Activities,Therapeutic Exercise PT Services Indicated Yes Treatment Frequency and 1-2x/wk for 8 additional visits Duration These treatments will address the objective and functional deficits as defined above. The patient will be advanced safely and appropriately in order for the patient to progress towards his/her prior level of function. Additional exercises will be introduced and as well as a comprehensive home exercise program upon discharge, if needed, ?to ensure carryover
== END 2023-07-10 13:08 | disposition home or self-care (01) ==
LOC: ANHPT 10:00
PROVIDERS: PCP Internal Medicine; Visit Provider Psychiatry & Neurology Neurology
DX: R53.1 Weakness (principal); G56.02 Carpal tunnel syndrome, left upper limb; G56.22 Lesion of ulnar nerve, left upper limb
CPT/HCPCS: 97018; 97110; 97112; 97116; 97140; 97161; 97166; 97530

== ENCOUNTER 2023-07-27 09:03 | Outpatient (CLI) | payer MEDICARE, SELFPAY | END 2023-07-27 09:04 | disposition home or self-care (01) | LOC: ANHAUDASC 09:04 | PROVIDERS: PCP Internal Medicine; Visit Provider Internal Medicine | DX: H90.3 Sensorineural hearing loss, bilateral (principal) | CPT/HCPCS: 92557; 92567 ==

== ENCOUNTER 2023-08-10 06:37 | Outpatient (CLI) | payer MEDICARE, SELFPAY ==
--- NOTE | ~2023-08-10 | MR_ITS ---
EXAMINATION: MR brain/brain stem wo/w con DATE: 08/10/2023 08:46 INDICATION: Weakness. TECHNIQUE: Magnetic resonance imaging (MRI) of the brain and brainstem was performed without and with 13 mL MultiHance intravenous contrast. COMPARISON: Brain MRI 01/14/2023 FINDINGS: There are scattered areas of nonspecific increased T2-weighted signal intensity in the cere bral white matter, which is within normal limits for the patient's age. There is no intracranial hemo rrhage, acute infarction, or abnormal intracranial mass lesion. The ventricles are normal in size. Th e paranasal sinuses are clear. There are likely changes of ocular lens replacement surgeries. There i s a small right mastoid effusion. IMPRESSION: 1. Normal aging brain. Reviewed, dictated and finalized at location A. IMPRESSION: 1. Normal aging brain.
--- NOTE | ~2023-08-10 | MR_ITS ---
EXAMINATION: MR cervical spine wo/w con DATE: 08/10/2023 08:46 INDICATION: Cervical and thoracic myelopathy. Weakness. TECHNIQUE: Magnetic resonance imaging (MRI) of the cervical spine was performed without and with 13 m L MultiHance intravenous contrast. COMPARISON: Cervical spine MRI 10/10/2022 FINDINGS: There is 4 degrees dextrocurvature of cervical spine. Vertebral body heights are normal. Th ere is severely decreased disc height from C3-C4 through C5-C6 and moderately decreased disc height a t C6-C7 and C7-T1. The spinal cord signal intensity is normal. The following disc levels are specific ally discussed: C2-C3: The disc does not extend beyond the endplate margin. There is no uncovertebral joint osteoarth ritis. There is severe bilateral facet joint osteoarthritis. There is mild right neural foraminal elida nosis. There is no central canal stenosis. C3-C4: The disc is bulging. There is severe bilateral uncovertebral joint osteoarthritis. There is se malathi bilateral facet joint osteoarthritis. There is mild right and moderate left neural foraminal elida nosis. There is mild central canal stenosis with ventral indentation of the spinal cord. C4-C5: The disc is bulging. There is severe bilateral uncovertebral joint osteoarthritis. There is mi ld right and severe left facet joint osteoarthritis. There is mild right and moderate left neural for aminal stenosis. There is mild central canal stenosis with ventral indentation of the spinal cord. C5-C6: The disc is bulging. There is severe bilateral uncovertebral joint osteoarthritis. There is mi ld bilateral facet joint osteoarthritis. There is mild right and moderate left neural foraminal steno sis. There is moderate central canal stenosis with ventral and dorsal indentation of the spinal cord. C6-C7: The disc is bulging. There is moderate right and severe left uncovertebral joint osteoarthriti s. There is mild bilateral facet joint osteoarthritis. There is mild bilateral neural foraminal steno sis. There is mild central canal stenosis. C7-T1: The disc is bulging. There is mild bilateral uncovertebral joint osteoarthritis. There is davey re bilateral facet joint osteoarthritis. There is mild bilateral neural foraminal stenosis. There is no central canal stenosis. IMPRESSION: 1. Severe cervical spondylosis, stable from 10/10/2022. Reviewed, dictated and finalized at location A.
--- NOTE | ~2023-08-10 | MR_ITS ---
EXAMINATION: MR thoracic spine wo/w con DATE: 08/10/2023 08:46 INDICATION: Weakness. Cervical and thoracic myelopathy. TECHNIQUE: Magnetic resonance imaging (MRI) of the thoracic spine was performed without and with 13 m L MultiHance intravenous contrast. COMPARISON: None FINDINGS: There is 7 degrees levocurvature of upper thoracic spine. There is kyphosis of thoracic spi ne. Vertebral body heights are normal. There is mildly decreased disc height at T3-T4 and T5-T6, mode rately decreased disc height from T6-T7 through T9-T10, and mildly decreased disc height at T10-T11. The discs do not extend beyond the endplate margins. There is multilevel facet joint osteoarthritis, severe on the right at T3-T4, T4-T5, and T5-T6. On the right, there is mild neural foraminal stenosis at T2-T3, T3-T4, T4-T5, and T5-T6. No central canal stenosis. The spinal cord signal intensity is no rmal. The conus medullaris is at L1. IMPRESSION: 1. Moderate thoracic spondylosis. 2. Thoracic kyphosis. Reviewed, dictated and finalized at location A.
== END 2023-08-10 06:38 | disposition home or self-care (01) ==
PROVIDERS: PCP Internal Medicine; Visit Provider Psychiatry & Neurology Neurology
DX: R53.1 Weakness (principal); G95.9 Disease of spinal cord, unspecified; M47.14 Other spondylosis with myelopathy, thoracic region; M47.892 Other spondylosis, cervical region
CPT/HCPCS: 70553; 72156; 72157; A9577

== ENCOUNTER 2023-11-12 14:10 | Outpatient (CLI) | payer MEDICARE, SELFPAY ==
--- NOTE | ~2023-11-12 | XR_ITS ---
XR ankle LT min 3V Ordering provider: Lopez Lawrence MD History: . INJURY 5 DAYS AGO/PAIN . Comparison: None. FINDINGS: BONES: No acute fracture or dislocation. JOINT SPACES: The ankle mortise is normal. SOFT TISSUES: Normal. IMPRESSION: No acute osseous abnormality left ankle. Reviewed, dictated and finalized at location A.
--- NOTE | ~2023-11-12 | XR_ITS ---
XR foot LT min 3V Ordering provider: Lopez Lawrence MD History: . M79.672 - Pain in left foot . Comparison: None. FINDINGS: BONES: No acute fracture or dislocation. JOINT SPACES: Narrowing of the distal interphalangeal joints. No tarsal coalition. SOFT TISSUES: Normal. IMPRESSION: No acute osseous abnormality left foot. Reviewed, dictated and finalized at location A.
== END 2023-11-12 14:11 | disposition home or self-care (01) ==
PROVIDERS: PCP Internal Medicine; Visit Provider Internal Medicine
DX: M25.572 Pain in left ankle and joints of left foot (principal); M25.472 Effusion, left ankle; W19.XXXA Unspecified fall, initial encounter
CPT/HCPCS: 73610; 73630

== ENCOUNTER 2025-01-02 13:09 | Emergency (ER) | payer MEDICARE, SELFPAY ==
[2025-01-02] VITALS (33 sets, daily range): BP systolic 135–165; BP diastolic 64–96; PULSE 65–86; RESP 12–22; TEMP 36.5–36.8; O2SAT 94–100
--- NOTE | ~2025-01-02 | CT_ITS ---
EXAM/PROCEDURE: CT wrist RT wo con HISTORY: poss schapholunate dissociation COMPARISON: X-rays same date TECHNIQUE: Noncontrast enhanced CT of the right wrist performed. FINDINGS: Comminuted, impacted intra-articular fracture of the distal radius present with approximately 5 mm of foreshortening of the distal intra-articular fragments, approximately 7 mm of volar displacement of the pole are intra- articular fragment, and approximately 5 mm dorsal displacement of the dorsal fragment. Mildly displaced ulnar styloid fracture. No fracture lucency seen involving the carpal bones or visualized hand bones. Scattered degenerative changes. No pathologic lesion seen. Soft tissue swelling is noted about the fracture site. No gross malalignment or subluxation involving the carpal bones. IMPRESSION: Impacted displaced and foreshortened comminuted intra-articular fracture of the radius; the carpal bones appear intact. Mildly displaced ulnar styloid fracture also noted. Reviewed, dictated and finalized at location A. 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 Mildly displaced ulnar sty loid fracture also noted.
--- NOTE | ~2025-01-02 | XR_ITS ---
EXAMINATION: XR wrist RT 2V, 01/02/2025 15:30 MICA PASTER HISTORY: post reduction COMPARISON: No comparisons available. Findings: Slightly displaced fractures of the distal radius and ulnar styloid process. No significant degenerative changes. Soft tissue swelling. Impression: Interval reduction Reviewed, dictated and finalized at location P. PASTER Impression: Interval reduction
--- NOTE | ~2025-01-02 | XR_ITS ---
PROCEDURE/PROCEDURES: XR forearm RT 2V HISTORY: Known fracture distally with pain COMPARISON(S): 6 wrist images from earlier same day TECHNIQUE: 2 radiographic images were submitted for interpretation. FINDINGS: Bones: The known distal radial and ulnar fractures/dislocation are again noted. There are no destructive lesions or other lesions identified. Joints: There appears to be some rotation of the scaphoid, and there may be scapholunate disassociation. There is no evidence of erosive arthropathy. IMPRESSION: Known fractures/radial ulnar dislocation again noted. Scapholunate disassociation is suspected. Reviewed, dictated and finalized at location A. RPRETER DEAF
--- NOTE | ~2025-01-02 | XR_ITS ---
PROCEDURE/PROCEDURES: XR wrist RT 2V HISTORY: Injury and deformity COMPARISON(S): April 26, 2012 TECHNIQUE: 2 radiographic images were submitted for interpretation. FINDINGS: Bones: There is a comminuted impacted fracture of the distal radius which involves the articular surface with the carpal bones. There is ulnar styloid is likewise fractured and displaced from its site of origin. There are no destructive lesions or other lesions identified. Joints: There appears to be distal radial ulnar joint dislocation, with the ulna displaced in a ventral direction. There is no evidence of erosive arthropathy. IMPRESSION: Fractures/dislocation as described Reviewed, dictated and finalized at location A. ING SECOND HAND
--- NOTE | 2025-01-02 13:29 | ED.UPPEXIN ---
HPI - Extremity Injury (Upper) General Chief Complaint: Extremity Injury, Upper Stated Complaint: Fall, R wrist deformity Time Seen by Provider: 01/02/25 13:23 Source: patient and EMS Mode of arrival: EMS Limitations: no limitations History of Present Illness HPI narrative: This is a 79-year-old female with history of ALS, diabetes hyperlipidemia who presents to the ED for a fall. Patient states that she was in the bathroom and she lost her balance and fall onto outstretched right hand injuring her right wrist. Per EMS, there was obvious deformity. she was given fentanyl with minimal improvement of her symptoms. Denies hitting her head, loss conscious. She is Not on any blood thinners. Related Data Home Medications ?Medication ?Instructions ?Recorded ?Confirmed ?Last Taken ?Type calcium carbonate (Calcium 500) 500 mg PO DAILY 07/12/20 09/11/24 05/13/23 History multivitamin 1 tablet PO DAILY 07/12/20 09/11/24 05/13/23 History cyanocobalamin (vitamin B-12) 5,000 mcg PO QAM 10/14/21 09/11/24 05/13/23 History 5,000 mcg capsule ibuprofen 200 mg capsule 400 mg PO Q6H PRN Pain 10/14/21 09/11/24 10/10/21 History riluzole 50 mg tablet 50 mg PO BID 12/10/23 09/11/24 Unknown History edaravone 105 mg/5 mL oral 105 mg PO QAM 04/30/24 09/11/24 Unknown History suspension (Radicava ORS) Allergies Allergy/AdvReac Type Severity Reaction Status Date / Time iodine Allergy Severe Anaphylaxis Verified 01/02/25 13:16 iohexol (From contrast - CT, Allergy Severe Anaphylaxis Verified 01/02/25 13:16 X-RAY) shellfish derived Allergy Severe Anaphylaxis Verified 01/02/25 13:16 Wbejpuz-LSM-EiR Reductase Allergy Severe Diarrhea Verified 01/02/25 13:16 Inhibitor (Pmfsgsx-Sqn-Kyu Reductase Inhibitor) chlorhexidine Allergy Intermediate Itching Verified 01/02/25 13:16 hydrocodone (From Vicodin) AdvReac Dizziness Verified 01/02/25 13:16 Review of Systems Review of Systems: Gen.: Denies fevers or chills Eyes: Denies eye pain or visual change ENT: Denies congestion Respiratory: Denies shortness of breath or cough CV: Denies chest pain or palpitations GI: Denies abdominal pain nausea, emesis or diarrhea denies burning, urgency, frequency or hematuria Musculoskeletal: as per HPI Neuro: Denies numbness, tingling, weakness or focal weakness Skin: Denies rash Except as documented, all other systems reviewed and negative [facility] Past Medical History Medical History Dry skin dermatitis Aortic valve sclerosis Foot drop, left Hearing loss Encounter for routine adult health examination with abnormal findings Benign essential hypertension Elevated blood pressure reading without diagnosis of hypertension Breast cancer screening Cricopharyngeus muscle dysfunction Colon cancer screening GERD with esophagitis GERD (gastroesophageal reflux disease) Oropharyngeal dysphagia Orthopedic aftercare Right knee pain BPPV (benign paroxysmal positional vertigo) Vertigo Schatzki's ring Injury of toe Encounter for surgical aftercare following surgery on the digestive system DJD (degenerative joint disease), multiple sites BMI 26.0-26.9,adult Encounter for Medicare annual wellness exam BMI 27.0-27.9,adult Hx of colonic polyps Gastric polyps Dysphagia GERD (gastroesophageal reflux disease) Hypercholesteremia Rotator cuff arthropathy of right shoulder Osteoporosis Arthritis of right shoulder region Urticaria Right shoulder pain DM2 (diabetes mellitus, type 2) A1C=7 (02/26/19) Surgical History Surgical History Status post arthroscopy of right knee History of meniscectomy of right knee (~10/20/21) Partial medial meniscectomy S/P cholecystectomy Hx laparoscopic cholecystectomy 10/11/20 Status post reverse total arthroplasty of right shoulder (~09/30/19) History of arthroscopy of right shoulder (~01/25/12) History of partial hysterectomy History of tonsillectomy History of ankle surgery Right ORIF Hx of repair of rotator cuff Bilateral 2004 History of lumpectomy of both breasts 1985 History of epicondylectomy Bilateral 2004 Family History Family History Father Family history of osteoarthritis Sibling Family history of diabetes mellitus in first degree relative Diabetes mellitus Cancer Mother Acute myocardial infarction Hypertension Heart disease Social History Social History Social History: Patient lives at home with Fam, and son. She wishes Fam to be her surrogate MDM. She is listed as a FC. PCP is Dr. Lawrence whom she follows up with regularly Smoking status: Never smoker Second hand tobacco smoke exposure: No Alcohol intake: never Substance use: never Substance use type: does not use Do You Feel Safe in your Home?: Yes Lack of Transportation: No Lack of Food: Never True Current Housing: I Have Housing Concerned About Future Housing: No Difficulty Paying Gas/Electric Bills: No Difficulty Paying for Meds: No Currently Unemployed: No Education: High School Diploma/GED Difficulty w/ Childcare or Family Care: No Living arrangements: with family Additional living arrangements comments: - Fam Occupation/Education: retired Spiritual care concerns: No Exam Narrative: APPEARANCE: No acute distress, nontoxic, resting in bed EYES: EOMI HEENT: Normocephalic, atraumatic, OMM RESPIRATORY: No respiratory distress Clear to auscultation bilaterally with no rhonchi wheezing or rales. CARDIOVASCULAR: Regular rate and rhythm without murmurs rubs or gallops. ABDOMINAL: Soft, nontender, nondistended, no rebound or guarding MUSCULOSKELETAl: right wrist in an immobilizer with tenderness over the distal radius / ulna. Neurovascular intact distally. NEURO: Awake and alert. Following commands, speech normal, no focal deficits SKIN:: Warm, dry. No rashes lesions or abrasions PSYCHIATRIC: Normal affect/mood, Course Vital Signs Vital signs: Vital Signs Temperature 97.7 F 01/02/25 13:10 Pulse Rate 65 01/02/25 13:10 Respiratory Rate 18 01/02/25 13:10 Blood Pressure 135/78 01/02/25 13:10 Pulse Oximetry 95 01/02/25 13:10 Oxygen Delivery Room Air 01/02/25 13:10 Temperature 98.2 F 01/02/25 15:49 Pulse Rate 76 01/02/25 16:31 Respiratory Rate 14 01/02/25 16:31 Blood Pressure 157/77 H 01/02/25 16:31 Pulse Oximetry 98 01/02/25 16:31 Oxygen Delivery Room Air 01/02/25 15:49 Oxygen Flow Rate 5 01/02/25 15:34 Procedures Orthopedic Fracture Reduction Fracture #1: Fracture Reduction date: 01/02/25 Fracture Reduction time: 15:45 Time Out Performed: Yes Side: right Fracture Reduction Location: radius Analgesia: procedural sedation Pre-Procedure Neuro Vascular Exam: normal Technique: direct manipulation Post Reduction X-rays Demonstrate: acceptable reduction Post-reduction neuro exam: intact Post-reduction vascular exam: intact Splint Applied: Yes Patient Tolerated Procedure: well Procedural Sedation Procedural Sedation #1: Procedural Sedation Date: 01/02/25 Procedural Sedation Time: 13:45 Presedation Evaluation: AOx4 Procedure: Closed fracture reduction of right wrist fracture Provider Performed: sedation and procedure Time Out: 1345 Informed Consent Obtained: yes Equipment in Room: bag and mask, capnography, explosive expert, crash cart, oxygen, pulse oximeter and suction Plan for Sedation: moderate sedation ASA Class: IV Mallampati Classification: class II NPO Status: last solid food (hours ago) Explanation to Patient/Family: Risk/Benefits/Alternatives and Pt/Family agreed with plan Pt. Educated on Procedural Sedation: Yes Re-evaluated immediately prior: Yes Preparation: explosive expert applied, pulse oximeter, capnometry used, supplemental O2 applied, suction/airway equipment at bedside and IV secured Fentanyl: IV Fentanyl dose (mcg): 50 IV Propofol dose (mg): 50 Patient Tolerated Procedure: well Complications: hypoxia Interventions: oxygen applied and airway repositioned Total Sedation Time (min): 20 MDM - Extremity Injury (Upper) MDM Narrative Medical decision making narrative: 79-year-old female Presenting for fall and right wrist injury. On initial evaluation patient was in no acute distress afebrile, hemodynamic stable. Differentials include but are not limited to: Fracture, sprain, strain, contusion Notable exam findings: Obvious deformity to the right wrist, neurovascularly intact distally I personally reviewed the patient's images. Notable imaging findings: X-ray right wrist did reveal a distal comminuted impacted radius fracture with ulnar styloid fracture. Patient also noted some proximal forearm pain so forearm x-ray was obtained which showed no proximal fractures but dented a possible scapholunate dissociation. Fracture was reduced with minimal to mild improvement and was placed in a splint. Splint was placed by the emergency department radiological technician under my supervision. The patient was neurovascularly intact both pre-and post procedure. I did discuss the case with Dr. Prado, will follow-up with the patient outpatient but did recommend clarifying with radiology regarding the possible scapholunate dissociation. Radiology did recommend CT to further evaluate so this was obtained and showed no scapholunate dissociation. Patient was deemed appropriate for discharge at this time. Patient was given a prescription for oxycodone. Patient was advised follow-up with orthopedics in the next week for re-evaluation. Patient was agreeable to this plan. Given strict return precautions. Medical Records Attestation: I reviewed the patient's medical records. Imaging Data Attestation: I personally reviewed and interpreted this imaging study as follows: Radiologist's impression: Impressions Wrist X-Ray 01/02/25 13:57 IMPRESSION: Fractures/dislocation as described Forearm X-Ray 01/02/25 14:39 IMPRESSION: Known fractures/radial ulnar dislocation again noted. Scapholunate disassociation is suspected. Wrist X-Ray 01/02/25 15:39 Impression: Interval reduction ADDENDUM: 01/02/25 1558 There is no gross asymmetry of the carpal bones appreciated on this exam however the study is insufficient to exclude an underlying subtle scapholunate dissociation although none is visualized. CT is recommended to further evaluate Wrist CT 01/02/25 16:30 IMPRESSION: Impacted displaced and foreshortened comminuted intra-articular fracture of the radius; the carpal bones appear intact. Mildly displaced ulnar styloid fracture also noted. Discharge Plan Discharge Clinical Impression: Fracture of wrist Qualifiers: Encounter type: initial encounter Fracture type: closed Laterality: right Qualified Code(s): S62.101A - Fracture of unspecified carpal bone, right wrist, initial encounter for closed fracture Patient Disposition: Home Condition: Stable Instructions: Antibiotic Form, Wrist Fracture in Adults (ED), Procedural Sedation (ED), Closed Reduction (ED) Additional Instructions: Who keep wrist and the splint and an shoulder sling when getting around. He may take the shoulder sling off when sitting. He may take oxycodone as prescribed. He may take Tylenol and ibuprofen in addition to this for pain. I would recommend icing the area. Follow up with Dr. Prado, orthopedic surgery, early next week, call his office 1st thing on Sunday. Return to the ED for any new or worsening symptoms. Patient Language: Polish Prescriptions: New oxycodone 5 mg tablet 5 mg PO Q6H PRN (Reason: pain) Qty: 12 0RF No Action multivitamin Tablet 1 tablet PO DAILY Patient Comments: QAM calcium carbonate [Calcium 500] 500 mg calcium (1,250 mg) tablet,chewable 500 mg PO DAILY Patient Comments: QAM riluzole 50 mg tablet 50 mg PO BID Rx Instructions: administer on an empty stomach, at least 1 hour before or 2 hours after food/meal(s) Radicava ORS 105 mg/5 mL suspension 105 mg PO QAM Rx Instructions: administer for 10 days of a 28-day cycle lidocaine 5 % adhesive patch,medicated 1 patch topical DAILY Qty: 30 1RF Rx Instructions: leave on most painful area for up to 12 hrs cyanocobalamin (vitamin B-12) 5,000 mcg Capsule 5,000 mcg PO QAM ibuprofen 200 mg Capsule 400 mg PO Q6H PRN (Reason: Pain) (DME) Drive Wheel Rollator See Rx Instructions .Route .MEDSUPPLY Qty: 1 0RF Rx Instructions: As directed. Pt. requesting a rollator due to her continued LE weakness and balance issues. She would like to request the one that folds sideways/fabric seat to fit in her car. Send order to [employer] fax [phone] ezetimibe [Zetia] 10 mg tablet 10 mg PO DAILY Qty: 90 3RF Patient Comments: QAM hydrochlorothiazide 12.5 mg tablet 12.5 mg PO .Every other day PRN (Reason: swelling) Qty: 15 0RF Rx Instructions: Take one tablet every other day. Januvia 100 mg tablet See Rx Instructions .ROUTE .COMPLEX Qty: 90 1RF Dose Instruction: TAKE 1 TABLET EVERY MORNING Rx Instructions: TAKE 1 TABLET EVERY MORNING olmesartan 5 mg tablet See Rx Instructions .ROUTE .COMPLEX Qty: 180 1RF Dose Instruction: Take 2 tablets by mouth once daily Rx Instructions: Take 2 tablets by mouth once daily Praluent Pen 75 mg/mL pen injector See Rx Instructions .ROUTE .COMPLEX Qty: 2 1RF Dose Instruction: INJECT 75MG SUBCUTANEOUSLY (INTO THE ABDOMEN, THIGH OR UPPER ARM) EVERY 14 DAYS. ROTATES SITES Rx Instructions: INJECT 75MG SUBCUTANEOUSLY (INTO THE ABDOMEN, THIGH OR UPPER ARM) EVERY 14 DAYS. ROTATES SITES esomeprazole magnesium 40 mg capsule,delayed release(DR/EC) See Rx Instructions .ROUTE .COMPLEX Qty: 180 1RF Dose Instruction: TAKE 1 CAPSULE TWICE DAILY Rx Instructions: TAKE 1 CAPSULE TWICE DAILY Follow-up/Referrals: Lopez Lawrence MD [Primary Care Provider, Internal Medicine] Mason Prado MD [Physician, Orthopedics]
[2025-01-02] MEDS: HYDROmorphone HCL INJ (*CRX) 1 MG/ML SYR 0.5 MG IV PUSH (13:40)
[2025-01-02] MEDS: SODIUM CHLORIDE 0.9% IV 1,000 ML 999 ML IV CONT (13:41)
[2025-01-02] MEDS: ONDANSETRON INJ 4 MG/2 ML VIAL IV PUSH (13:41)
[2025-01-02] MEDS: fentaNYL CITRATE INJ (*CRX) 100 MCG/2 ML VIAL 50 MCG IV PUSH (15:18)
[2025-01-02] MEDS: PROPOFOL IV EMULSION 200 MG/20 ML VIAL 50 MG IV PUSH (15:19)
== END 2025-01-02 16:58 | disposition home or self-care (01) ==
PROVIDERS: Emergency Provider Student in an Organized Health Care Education/Training Program; PCP Internal Medicine
DX: S52.571A Other intraarticular fracture of lower end of right radius, initial encounter for closed fracture (principal); S52.611A Displaced fracture of right ulna styloid process, initial encounter for closed fracture; G12.21 Amyotrophic lateral sclerosis; I35.8 Other nonrheumatic aortic valve disorders; I10 Essential (primary) hypertension; E11.9 Type 2 diabetes mellitus without complications; E78.00 Pure hypercholesterolemia, unspecified; K21.00 Gastro-esophageal reflux disease with esophagitis, without bleeding; M81.0 Age-related osteoporosis without current pathological fracture; M19.011 Primary osteoarthritis, right shoulder; Z96.611 Presence of right artificial shoulder joint; Z86.0100 Personal history of colon polyps, unspecified; Z90.49 Acquired absence of other specified parts of digestive tract; Z79.84 Long term (current) use of oral hypoglycemic drugs; Z79.899 Other long term (current) drug therapy; W18.39XA Other fall on same level, initial encounter
CPT/HCPCS: 25605; 73090; 73100; 73200; 96374; 96375; 99285; A4565; J1171; J2405; J2704; J3010; J7030